=== PATIENT | male | born 1955 | race Caucasian/White ===

== ENCOUNTER → 2017-01-06 | Outpatient (CLI) | payer OTHER, BC ==
[~2017-01-06] MED LIST: PRLSR20; SIMV80TA2 PO
--- NOTE | 2017-01-06 11:25 | DIAGNOSTIC IMAGING REPORT ---
LEFT KNEE 3 VIEWS CLINICAL HISTORY: LEFT KNEE PAIN pain COMPARISON: None. DISCUSSION: Moderate degenerative narrowing medial joint compartment. Mild degenerative change patellofemoral joint. No significant soft tissue calcifications. No significant joint effusion. There is no evidence for soft tissue swelling. IMPRESSION: Moderate degenerative change. Electronically signed by: Juan Carlos Osullivan M.D. 01/06/2017 11:23 AM Dictated Date/Time: 01/06/2017 11:23 AM
== END | disposition home or self-care (01) ==
LOC: C.RAD1850 11:04
PROVIDERS: ATTEND Nurse Practitioner Adult Health
DX: M25.562 Pain in left knee (principal)

== ENCOUNTER → 2017-04-14 | Outpatient (CLI) | payer BC ==
--- NOTE | 2017-04-14 09:28 | DIAGNOSTIC IMAGING REPORT ---
CHEST 2 VIEWS ROUTINE CLINICAL HISTORY: Z77.090 Asbestos [id number] COMPARISON STUDY: 04/07/2016 FINDINGS: The cardiac and mediastinal contours are normal. There is no evidence of focal pulmonary consolidation. There is no evidence of failure. No pleural effusions are visualized.[ No pleural plaques are visualized. There is an old left clavicular fracture. IMPRESSION: No active disease in the chest. Electronically signed by: Jorge L Pruitt M.D. 04/14/2017 9:26 AM Dictated Date/Time: 04/14/2017 9:26 AM
[2017-04-14 10:05] LABS: BASO % 0.7 %; BASO ABS # 0.03 K/uL (0-0.2); COMPLETE YES; EOS % 3.4 %; IG% 0.2 %; LYMPH % 25.5 %; LYMPH ABS # 1.12 K/uL (1.2-3.4); MEAN CELL VOLUME 87.8 fL (80-100); MEAN CORPUSCULAR HEMOGLOBIN 30.4 pg (25-34); MEAN CORPUSCULAR HGB CONC 34.6 g/dl (32-36); MEAN PLATELET VOLUME 9.6 fL (7.4-10.4); MONO % 8.4 %; NEUT % 61.8 %; PLATELET COUNT 226 K/uL (130-400); RED BLOOD COUNT 4.67 M/uL (4.7-6.1); WHITE BLOOD COUNT 4.39 K/uL (4.8-10.8)
[2017-04-14 11:29] LABS: ALT/SGPT 40 U/L (12-78); AST/SGOT 26 U/L (15-37); BLOOD UREA NITROGEN 23 mg/dl (7-18); BUN/CREATININE RATIO 24.1 (10-20); CALCIUM 8.6 mg/dl (8.5-10.1); CARBON DIOXIDE 29 mmol/L (21-32); CHLORIDE 105 mmol/L (98-107); CHOLESTEROL 120 mg/dl (0-200); CREATININE 0.96 mg/dl (0.60-1.40); GLUCOSE 86 mg/dl (70-99); POTASSIUM 4.1 mmol/L (3.5-5.1); SODIUM 139 mmol/L (136-145)
[2017-04-14 11:39] LABS: ALB/GLOB RATIO 1.1 (0.9-2); ALKALINE PHOSPHATASE 88 U/L (45-117); CHOLESTEROL/HDL RATIO 2.9; HDL CHOLESTEROL 42 mg/dl; LDL CHOLESTEROL CALCULATED 66 mg/dl; TRIGLYCERIDES 61 mg/dl (0-150); VERY LOW DENSITY LIPOPROT CALC 12 mg/dl
[2017-04-14 13:42] LABS: URINE APPEARANCE CLEAR (CLEAR); URINE BILIRUBIN NEG (NEG); URINE COLOR YELLOW; URINE EPITHELIAL CELL AUTO 0-5 /lpf (0-5); URINE NITRITE NEG (NEG); URINE SPECIFIC GRAVITY 1.014 (1.000-1.030); UROBILINOGEN NEG (NEG); ZZUR CULT IF INDIC CLEAN CATCH NO
[2017-04-14 13:48] LABS: MANUAL MICROSCOPIC REQUIRED? NO; REVIEW REQ? NO
== END | disposition home or self-care (01) ==
LOC: C.RAD1850 08:53
PROVIDERS: ATTEND Internal Medicine
DX: Z77.090 Contact with and (suspected) exposure to asbestos (principal); I70.0 Atherosclerosis of aorta; E04.2 Nontoxic multinodular goiter; E78.5 Hyperlipidemia, unspecified; N40.0 Benign prostatic hyperplasia without lower urinary tract symptoms

== ENCOUNTER 2017-10-04 05:29 | Emergency (ER) | payer BC, OTHER ==
[~2017-10-04] VITALS: Ht 175.3 cm; Wt 76.0 kg
[2017-10-04 05:32] VITALS: TEMP 36.3; Ht 175.3 cm; Wt 76.0 kg
[2017-10-04] MEDS ORDERED: KETOROLAC TROMETHAMINE 30 MG/ML VIAL IV STA (05:49)
[2017-10-04] MEDS ORDERED: HYDROmorphone INJ 1 MG/ML SYR IV STA (05:49)
--- NOTE | 2017-10-04 06:42 | DIAGNOSTIC IMAGING REPORT ---
L-SPINE MIN 4 VIEWS ROUTINE CLINICAL HISTORY: Right sided lower back and leg pain. Evaluate for disc space narrowing. COMPARISON: None FINDINGS: There is 8 mm anterolisthesis of L5 on S1 likely due to pars defects. There is moderate disc space narrowing with osteophytosis and vacuum disc phenomenon at L5-S1. Otherwise, there is mild multilevel disc space narrowing with mild to moderate disc space narrowing at L2-L3. There is moderate multilevel facet arthrosis. Sacroiliac joints are intact. IMPRESSION: 1. No acute lumbar spine fracture. 2. Grade I anterolisthesis of L5 on S1 likely due to L5 pars defects. 3. Moderate disc space narrowing at L5-S1 and mild to moderate disc space narrowing at L2-L3. 4. Moderate multilevel facet arthrosis. Electronically signed by: Nelson Pitts M.D. 10/04/2017 6:41 AM Dictated Date/Time: 10/04/2017 6:39 AM
[2017-10-04] MEDS ORDERED: ZNTT/150 PO (06:44)
[2017-10-04] MEDS ORDERED: MULT-506 PO (06:44)
[2017-10-04] MEDS ORDERED: PROB1CAP41 PO (06:45)
[2017-10-04] MEDS ORDERED: ASPI81TA28 PO (06:45)
--- NOTE | 2017-10-04 06:45 | EMERGENCY ROOM VISIT NOTE ---
History Report prepared by Christine: Ro Hood Under the Supervision of: Dr. Salome Sena D.O. First contact with patient: 05:37 Chief Complaint: BACK PAIN Stated Complaint: PAIN IN LOWER BACK,HIP,TO KNEE History of Present Illness The patient is a 62 year old male who presents to the Emergency Room with complaints of constant bilateral back pain beginning one week ago. He states the pain radiates to his buttocks, knees, and pelvis. His states he is detoxing because they have been doing "holistic stuff" and this has caused him to urinate a lot tonight. The patient notes he had a headache 2 days ago. 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 Review of Systems He denies any fever, chills, upper respiratory symptoms, or cough. He denies any dizziness or lightheadedness. He denies any chest pain, shortness of breath , nausea, vomiting, or diaphoresis. He denies any abdominal pain, constipation , or diarrhea. All other systems were reviewed and were negative. 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 & Oth Luts (5) Paralytic Ileus Surgical Problems: (1) Bilat Inguinal Hernia (2) Unilat Inguinal Hernia Family History Cancer Diabetes mellitus Heart disease High blood pressure Social History Smoking Status: Never Smoker Alcohol Use: occasionally Marital Status: Housing Status: lives with significant other () Occupation Status: employed Current/Historical Medications Scheduled Aspirin (Aspirin Ec), 81 MG PO Q2D Fish Oil (Kathleen-3), 1 CAP PO DAILY Mqcaubalxla-Mjxcmqklqhq-Egi C- (Glucosamine Chondroitin), 1 TAB PO DAILY Methylprednisolone (Medrol Dosepak), 1 PKT PO UD Multivitamin (Multivitamin), 1 TAB PO DAILY Probiotic Product (Probiotic Daily), 1 CAP PO QPM Ranitidine (Zantac), 150 MG PO BID Simvastatin (Zocor), 80 MG PO QPM [beta tcp], 1 DOSE PO AMPM [botanifuge], 2 CAP PO AMPM [bromblian/cla], 1 DOSE PO AMPM Scheduled PRN Ondansetron Hcl (Zofran), 4 MG PO Q6H PRN for Nausea Oxycodone/Acetaminophen 5MG/325MG (Percocet 5MG/325MG), 1-2 TABLETS PO Q4H PRN for Pain Allergies Coded Allergies: Latex (Verified Allergy, Intermediate, RASH, 10/04/17) Suprofen (Verified Allergy, Mild, 10/04/17) Codeine (Verified Adverse Reaction, Intermediate, BAD NAUSEA AND VOMITING , 10/04/17) Propofol (Verified Adverse Reaction, Unknown, NAUSEA/VOMITING, 10/04/17) Physical Exam Vital Signs Date Time Temp Pulse Resp B/P (MAP) Pulse Ox O2 Delivery O2 Flow Rate FiO2 10/04/17 06:37 52 18 129/83 92 Room Air 10/04/17 06:04 68 18 154/90 93 Room Air 10/04/17 05:32 36.3 60 18 153/96 96 Room Air Physical Exam HEENT: Head - normocephalic and atraumatic Pupils are equal, round, and reactive to light. Extraocular eye muscles are intact, and sclera are anicteric. Nose - moist nasal mucosa without discharge. Mouth - moist buccal mucosa. Oropharynx is nonerythematous and there is no tonsillar exudate or edema noted. Neck: Supple; no JVD, nuchal rigidity, cervical lymphadenopathy. Heart: Regular rate and rhythm. There is a normal S1 and S2 with no murmurs, clicks, or gallops appreciated. Lungs: Clear to auscultation bilaterally with no wheezes, rales, or rhonchi. Abdomen: Soft, completely nontender, nondistended, with good bowel sounds. There are no palpable pulsatile masses or hepatosplenomegaly. There is no guarding, rigidity, or rebound noted. Extremities: No evidence of cyanosis, clubbing, or edema. There are easily palpable peripheral pulses. Skin: warm and dry with good turgor and no rashes. Back - Reproducible pain over the right sciatic nerve. Neuro Equal lower extremity strength; normal patellar reflexes. Medical Decision & Procedures ER Provider Diagnostic Interpretation: Radiology results as stated below per my review and the radiologist's interpretation: L-SPINE MIN 4 VIEWS ROUTINE Mild degenerative changes with no obvious discs face narrowing. CLINICAL HISTORY: Right sided lower back and leg pain. Evaluate for disc space narrowing. COMPARISON: None FINDINGS: There is 8 mm anterolisthesis of L5 on S1 likely due to pars defects. There is moderate disc space narrowing with osteophytosis and vacuum disc phenomenon at L5-S1. Otherwise, there is mild multilevel disc space narrowing with mild to moderate disc space narrowing at L2-L3. There is moderate multilevel facet arthrosis. Sacroiliac joints are intact. IMPRESSION: 1. No acute lumbar spine fracture. 2. Grade I anterolisthesis of L5 on S1 likely due to L5 pars defects. 3. Moderate disc space narrowing at L5-S1 and mild to moderate disc space narrowing at L2-L3. 4. Moderate multilevel facet arthrosis. Electronically signed by: Nelson Pitts M.D. 10/04/2017 6:41 AM Dictated Date/Time: 10/04/2017 6:39 AM Medications Administered Medications (Trade) Dose Ordered Sig/Jeison Route Start Time Stop Time Status Last Admin Dose Admin Ketorolac Tromethamine (Toradol Inj) 30 mg NOW STAT IV 10/04/17 05:49 10/04/17 05:51 DC 10/04/17 06:00 30 MG Hydromorphone HCl (Dilaudid Inj) 1 mg NOW STAT IV 10/04/17 05:49 10/04/17 05:51 DC 10/04/17 06:00 1 MG Ondansetron HCl (Zofran Inj) 4 mg NOW STAT IV 10/04/17 06:49 10/04/17 06:50 DC 10/04/17 06:49 4 MG Procedure Dilaudid IV, Toradol IV, Zofran IV ED Course 0540: Past medical records reviewed. The patient was evaluated in room A9. A complete history and physical exam was performed. IV lock was established. 0549: Dilaudid Inj 1 mg IV, Toradol Inj 30 mg IV. The patient went for plain films of the lumbar spine. 0638: I reevaluated the patient at this time. He is nauseated because of the pain medications I gave him. I will administer Zofran. 0649: Zofran Inj 4 mg IV 0715: I reevaluated the patient at this time. He is nauseated and cannot urinate. He is very concerned about making his dentist appointment on Thursday morning. I talked to him about opioid medication and the problems of addictions. I will look him up in the PDMP. 0736: Everything is negative in PDMP. The patient was able to urinate finally and it was negative. Medical Decision The patient is a 62 year old male who presents to the ED with back pain. Differential diagnosis includes sciatica, lumbar radiculopathy, herniated lumbar disc, kidney stone, pyelonephritis. Urine dip: Negative. Patient presents to the emergency department with severe right buttocks, right pelvis, and right thigh pain. This has been increasing over the past couple of days. He is significant discomfort with movement. I was able to reproduce a burning pain with deep palpation of the right piriformis muscle and sciatic nerve. The patient is suffering from acute sciatica. Because of the discomfort over the right hemipelvis and into the right thigh, I did plain films of the lumbar spine which did show some disc space narrowing at L2-L3 and L5-S1. Patient will need an MRI of the lumbar spine to further evaluate for acute disc herniation. Patient had no neurological deficits. He had moderate relief of his discomfort with the above medications. He will use a Medrol Dosepak and Percocet at home for pain. I've encouraged him to follow up with his PCP or Dr. Bowles to facilitate an MRI of the lumbar spine. If symptoms worsen or he develops any lower extremity weakness or loss of control of his bowels or bladder, he was instructed to return to the ER. [place] Drug Monitoring Program Search Results: patient reviewed within database, no issues identified Medication Reconcilliation Current Medication List: was personally reviewed by me Blood Pressure Screening Patient's blood pressure: Normal blood pressure Impression Primary Impression: Lumbar radiculopathy Additional Impression: Sciatica Scribe Attestation The scribe's documentation has been prepared under my direction and personally reviewed by me in its entirety. I confirm that the note above accurately reflects all work, treatment, procedures, and medical decision making performed by me. Departure Information Dispostion Home / Self-Care Prescriptions Methylprednisolone (MEDROL DOSEPAK) 4 Mg Fred 1 PKT PO UD for 6 Days, #1 PKT Prov: Salome Sena D.O. 10/04/17 Ondansetron Hcl (ZOFRAN) 4 Mg Tab 4 MG PO Q6H Y for Nausea, #14 TAB Prov: Salome Sena D.O. 10/04/17 Oxycodone/Acetaminophen 5MG/325MG (PERCOCET 5MG/325MG) Tab 1-2 TABLETS PO Q4H Y for Pain, #20 TAB Prov: Salome Sena D.O. 10/04/17 Referrals Lul Martinez M.D. (PCP) Forms HOME CARE DOCUMENTATION FORM, IMPORTANT VISIT INFORMATION Patient Instructions My [facility] Additional Instructions Rest. Limit strenuous activity and bennding Medrol dose pack as directed. Percocet 1-2 tabs. every 4 hours for severe pain. Do not drink alcohol or drive while taking this med zofran - 1 tab. under the tongue for nausea if needed. Follow up with PCP or Dr. Bowles if pain persists Problem Qualifiers Additional Impression: Sciatica Laterality: right Qualified Codes: M54.31 - Sciatica, right side
[2017-10-04] MEDS ORDERED: OMEG10007 PO (06:48)
[2017-10-04] MEDS ORDERED: GLUCTAB7 PO (06:48)
[2017-10-04] MEDS ORDERED: ONDANSETRON INJ 2 MG/ML 2 ML VIAL IV STA (06:49)
[2017-10-04] MEDS ORDERED: [UNRECOGNIZED DRUG - OTHER] PO (06:50)
[2017-10-04] MEDS ORDERED: BETA TCP PO (06:50)
[2017-10-04] MEDS ORDERED: [UNRECOGNIZED DRUG - OTHER] PO (06:50)
[2017-10-04] MEDS ORDERED: METH4PAK PO (07:42)
[2017-10-04] MEDS ORDERED: ONDA4TAB46 PO (07:42)
[2017-10-04] MEDS ORDERED: OXYC-57 PO (07:42)
[2017-10-04 08:34] VITALS: BP 115/74; PULSE 72; O2SAT 97
== END 2017-10-04 08:35 | disposition home or self-care (01) ==
LOC: C.EDB 05:30 → C.EDA 08:35
DX: M54.16 Radiculopathy, lumbar region (principal); M54.41 Lumbago with sciatica, right side; K21.9 Gastro-esophageal reflux disease without esophagitis; E78.5 Hyperlipidemia, unspecified; Z79.82 Long term (current) use of aspirin

== ENCOUNTER → 2017-10-08 | Outpatient (CLI) | payer OTHER ==
[~2017-10-08] MED LIST changes: +ASPI81TA28 PO; +BETA TCP PO; +GLUCTAB7 PO; +METH4PAK PO; +MULT-506 PO; +OMEG10007 PO; +ONDA4TAB46 PO; +OXYC-57 PO; -PRLSR20; +PROB1CAP41 PO; +ZNTT/150 PO; +[UNRECOGNIZED DRUG - OTHER] PO; +[UNRECOGNIZED DRUG - OTHER] PO
[2017-10-08 17:58] LABS: BLOOD UREA NITROGEN 19 mg/dl (7-18); CREATININE 1.02 mg/dl (0.60-1.40)
== END | disposition home or self-care (01) ==
LOC: C.LABBFT 14:29
PROVIDERS: ATTEND Physician Assistant Medical
DX: M54.16 Radiculopathy, lumbar region (principal)

== ENCOUNTER → 2017-10-13 | Outpatient (CLI) | payer OTHER ==
[~2017-10-13] MED LIST changes: -METH4PAK PO; +RANI150T85 PO; -ZNTT/150 PO
[2017-10-13 19:04] LABS: BLOOD UREA NITROGEN 18 mg/dl (7-18); CALCIUM 8.6 mg/dl (8.5-10.1); CARBON DIOXIDE 30 mmol/L (21-32); CREATININE 1.54 mg/dl (0.60-1.40); GLUCOSE 94 mg/dl (70-99); SODIUM 137 mmol/L (136-145)
== END | disposition home or self-care (01) ==
LOC: C.LAB 18:10
PROVIDERS: ATTEND Internal Medicine
DX: R39.9 Unspecified symptoms and signs involving the genitourinary system (principal)

== ENCOUNTER → 2017-10-20 | Outpatient (CLI) | payer OTHER ==
[~2017-10-20] MED LIST changes: +ACET-1256 PO; +IBUP-1450 PO; +Prednisone
[2017-10-20 17:56] LABS: BLOOD UREA NITROGEN 21 mg/dl (7-18); CALCIUM 9.2 mg/dl (8.5-10.1); CARBON DIOXIDE 28 mmol/L (21-32); CREATININE 0.99 mg/dl (0.60-1.40); GLUCOSE 112 mg/dl (70-99); POTASSIUM 4.3 mmol/L (3.5-5.1); SODIUM 138 mmol/L (136-145)
== END | disposition home or self-care (01) ==
LOC: C.LABBFT 14:51
PROVIDERS: ATTEND Internal Medicine
DX: R79.9 Abnormal finding of blood chemistry, unspecified (principal)

== ENCOUNTER → 2017-12-04 | Outpatient (CLI) | payer OTHER ==
[~2017-12-04] MED LIST changes: -GLUCTAB7 PO
--- NOTE | 2017-12-04 14:17 | DIAGNOSTIC IMAGING REPORT ---
ABDOMEN FOR HERNIA CLINICAL HISTORY: 62 years-old Male presenting with R10.30 Groin discomfort. TECHNIQUE: Real-time grayscale Doppler ultrasound imaging of the right inguinal region was performed for a focused evaluation at the site of clinical concern. COMPARISON: CT from 05/31/2012. FINDINGS: At the site of clinical concern in the region of the right inguinal canal, suspected peritoneal defect measuring 9 mm with herniated isoechoic contents characteristic of fat. The hernia sac measures 2.8 x 1.0 cm. No associated fluid. This is reducible with sonographic probe compression. IMPRESSION: 1. Reducible fat-containing right inguinal hernia. Electronically signed by: Flash Rodríguez M.D. 12/04/2017 2:15 PM Dictated Date/Time: 12/04/2017 2:13 PM
== END | disposition home or self-care (01) ==
LOC: C.ULTR 13:53
PROVIDERS: ATTEND Internal Medicine
DX: R10.30 Lower abdominal pain, unspecified (principal); K40.90 Unilateral inguinal hernia, without obstruction or gangrene, not specified as recurrent

== ENCOUNTER → 2017-12-30 | Day surgery (SDC) | payer OTHER ==
[2017-12-25 15:54] VITALS: BMI 26.0
[~2017-12-30] VITALS: Ht 175.3 cm; Wt 81.4 kg
[~2017-12-30] MED LIST changes: +ATROPINE SULFATE 0.1 MG/ML 5ML SYR IV PRN; +BUPIVACAINE 0.5 % 5 MG/1 ML MPF 30ML VIAL INJ ONE; +BUPIVACAINE 0.5 % 5 MG/1 ML MPF 30ML VIAL ONE; +CEFAZOLIN 2000MG IV PUSH 15 ML IV SCH; +CEFAZOLIN SOD 1 GM VIAL ONE; +CEPH500C2 PO; +DEXAMETHASONE SOD INJ 4 MG/ML VIAL ONE; +EpHEDrine SULFATE 50MG/5ML SYR ONE; +EpHEDrine SULFATE INJ 50 MG/ML AMP IV PRN; +FENTANYL CITRATE INJ 50 MCG/1 ML 2 ML VIAL ONE; +GLYCOPYRROLATE INJ 0.2 MG/ML VIAL ONE; +HYDR-5688 PO; +HYDROCODONE/ACETAMIN 5/325MG TAB PO PRN; +HYDROmorphone INJ 2 MG/ML SYR/VIAL IV PRN; -IBUP-1450 PO; +IBUP-1459 PO; +LACTATED RINGER'S 1000ML IV SCH; +LIDOCAINE HCL 1% 20 ML VIAL ONE; +LIDOCAINE HCL 2% 2 ML VIAL (20MG/ML) ONE; +LIGAPLEX PO; +MIDAZOLAM HCL 1 MG/ML 2ML VIAL ONE; +NEOSTIGMINE METHYLSULFATE 5 MG/5 ML SYR ONE; -ONDA4TAB46 PO; +ONDANSETRON INJ 2 MG/ML 2 ML VIAL IV PRN; +ONDANSETRON INJ 2 MG/ML 2 ML VIAL ONE; -OXYC-57 PO; +PHENYLEPHRINE 100MCG/ML 5ML SYR IV PRN; +PROPOFOL IV EMULSION 10 MG/ML 20 ML VIAL IV ONE; -Prednisone; +ROCURONIUM BROMIDE 10 MG/ML 5 ML VIAL IV ONE; +SCOPOLAMINE 1.5 MG TDSY TD ONE; -[UNRECOGNIZED DRUG - OTHER] PO
[2017-12-30 08:20] VITALS: BP 142/92; PULSE 66; TEMP 36.5; O2SAT 97; Ht 175.3 cm; Wt 81.4 kg
--- NOTE | 2017-12-30 10:25 | History & Physical Bridge Note ---
H&P Re-Evaluation Bridge Note: I have examined the patient, reviewed the History & Physical and in the interval since the performance of the History & Physical I have noted the following changes of clinical significance: No changes noted
--- NOTE | 2017-12-30 10:42 | Discharge Instructions ---
Discharge Instructions Date of Service Dec 30, 2017. Visit Reason for Visit: Recurrent Right Inguinal Hernia Discharge Discharge Diagnosis / Problem: Rt inguinal hernia Discharge Goals Goal(s): Decrease discomfort, Improve function, Improve disease control Activity Recommendations Activity Limitations: as noted below Lifting Limitations: no more than 25 pounds (for 4 weeks) Exercise/Sports Limitations: until after follow-up appointment May Resume Sexual Activity: when tolerated Shower/Bathe: tomorrow Driving or Machine Use: resume 3 days after discharge Anesthesia . Post Anesthesia Instructions: If you have had General Anesthesia or IV Sedation: * Do not drive today. * Resume driving when surgeon permits. * Do not make important decisions or sign legal documents today. * Call surgeon for: 1. Temperature elevations greater than 101 degrees F. 2. Uncontrollable pain. 3. Excessive bleeding. 4. Persistent nausea and vomiting. 5. Medication intolerance (nausea, vomiting or rash). * For nausea and vomiting use only clear liquids such as: tea, soda, bouillon until nausea subsides, then gradually increase diet as tolerated. * If you have any concerns or questions, call your surgeon's office. If physician is unavailable and it is an emergency, call 911 or go to the nearest emergency room. . Instructions / Follow-Up Instructions / Follow-Up SPECIAL CARE INSTRUCTIONS: * Cover incisions and change daily for comfort/drainage. may leave uncovered with dermabond * Avoid constipation- may use Senokot S and Milk of magnesia twice daily as directed on the package * May use ibuprofen for pain as tolerated. * Expect some swelling and bruising. Call your doctor if: * Temperature above 101 degrees * Pain not relieved by pain medicine ordered * There is increased drainage or redness from any incision * You have any unanswered questions or concerns [phone]. FOLLOW UP VISIT: If not already scheduled, please call the office for a follow-up visit. for 2 weeks- no sutures to remove OFFICE PHONE NUMBER: Dr. Go Office Diet Recommendations Recommended Home Diet: resume previous diet Pending Studies Studies pending at discharge: no Medical Emergencies . Who to Call and When: Medical Emergencies: If at any time you feel your situation is an emergency, please call 911 immediately. . Non-Emergent Contact Non-Emergency issues call your: Primary Care Provider, Surgeon . . "Provider Documentation" section prepared by Russell Go. .
--- NOTE | 2017-12-30 11:27 | [facility] Operative Report ---
Operative Report Operative Date Dec 30, 2017. Pre-Operative Diagnosis Right Recurrent Inguinal Hernia Post-Operative Diagnosis Right Recurrent Inguinal Hernia, direct defect, indirect lipoma Procedure(s) Performed Right Laparoscopic Inguinal Hernia Repair Surgeon Dr Go Line Lead Surgeon(s) Ethan Correa PA-C Estimated Blood Loss 10cc Findings small direct defect and small indirect lipoma Anesthesia Type General Complication(s) none Disposition Recovery Room / PACU I attest to the content of the Intraoperative Record and any orders documented therein. Any exceptions are noted below.
--- NOTE | 2017-12-30 12:13 | Anesthesiology Progress Note ---
Anesthesia Post Op Note Date & Time Dec 30, 2017 at 12:13 Vital Signs Pain Intensity: 2 Vital Signs Past 12 Hours Date Time Temp Pulse Resp B/P (MAP) Pulse Ox O2 Delivery O2 Flow Rate FiO2 12/30/17 12:10 54 16 108/69 93 Room Air 12/30/17 12:00 47 12 105/70 97 Oxymask 10 12/30/17 11:50 50 11 107/71 99 Oxymask 10 12/30/17 11:40 36.7 50 16 100/65 98 Oxymask 10 12/30/17 08:20 36.5 66 20 142/92 (109) 97 Room Air Notes Mental Status: alert / awake / arousable, participated in evaluation Pt Amnestic to Procedure: Yes Nausea / Vomiting: adequately controlled Pain: adequately controlled Airway Patency, RR, SpO2: stable & adequate BP & HR: stable & adequate Hydration State: stable & adequate Anesthetic Complications: no major complications apparent
[2017-12-30 12:25] VITALS: BP 103/62; PULSE 54; TEMP 36.5; O2SAT 99
[2017-12-30 12:55] VITALS: BP 116/77; PULSE 68; O2SAT 98
--- NOTE | 2017-12-30 13:31 | OPERATIVE REPORT ---
DATE OF OPERATION: 12/30/2017 NAME OF THE OPERATION: Laparoscopic recurrent right inguinal hernia repair. PREOPERATIVE DIAGNOSIS: Recurrent right inguinal hernia. POSTOPERATIVE DIAGNOSIS: Recurrent right inguinal hernia with direct defect and small lipoma in the indirect site. STAFF SURGEON: Russell Go MD AIR OPERATIONS MANAGER: Ross Correa PA-C ANESTHESIA: General. PROCEDURE: The patient was brought in the operating room and placed on the operating table in supine position. His abdomen was prepped and draped in the usual fashion. Falk catheter, pneumatic stockings, and orogastric tube were placed. The skin and subcutaneous tissue above the umbilicus were anesthetized. An incision was made carrying dissection down to the fascia, placing a Veress needle producing pneumoperitoneum. Under visualization, two 5 mm ports were placed, one right and left lateral. On inspection, the patient had what appeared to be a direct inguinal hernia. The indirect site was still intact from prior repair. At this point, dissection was carried out from [id number] above the defect, taking the peritoneum down, identifying a small direct hernia sac which was dissected free. The patient had a small lipoma which was in the indirect site. These were all taken down and a large piece of 3D max mesh was placed into the right lower quadrant covering the defects, secured above the inguinal ligament using absorbable tacks. The peritoneum was then brought up over the mesh, secured using absorbable tacks. The pneumoperitoneum was reduced. All ports were removed. Fascia at the umbilicus closed using 0 Vicryl suture. Skin reapproximated using subcuticular 4-0 Monocryl and Dermabond. The patient was transferred to recovery room in stable condition. My assistant sales manager helped with prepping, draping, exposure of the hernia, repair of the hernia, and closure of the wounds. I attest to the content of the Intraoperative Record and any orders documented therein. Any exception s are noted below.
== END | disposition home or self-care (01) ==
LOC: C.ACU 08:08
PROVIDERS: ATTEND Surgery
DX: K40.91 Unilateral inguinal hernia, without obstruction or gangrene, recurrent (principal); E78.5 Hyperlipidemia, unspecified; N40.0 Benign prostatic hyperplasia without lower urinary tract symptoms; K21.9 Gastro-esophageal reflux disease without esophagitis; M51.9 Unspecified thoracic, thoracolumbar and lumbosacral intervertebral disc disorder; M54.16 Radiculopathy, lumbar region; E78.00 Pure hypercholesterolemia, unspecified; Z91.040 Latex allergy status; Z88.2 Allergy status to sulfonamides; Z82.49 Family history of ischemic heart disease and other diseases of the circulatory system; Z84.1 Family history of disorders of kidney and ureter; Z83.3 Family history of diabetes mellitus; Z79.82 Long term (current) use of aspirin

== ENCOUNTER → 2018-04-14 | Outpatient (CLI) | payer OTHER ==
[~2018-04-14] MED LIST changes: -ATROPINE SULFATE 0.1 MG/ML 5ML SYR IV PRN; -BUPIVACAINE 0.5 % 5 MG/1 ML MPF 30ML VIAL INJ ONE; -BUPIVACAINE 0.5 % 5 MG/1 ML MPF 30ML VIAL ONE; -CEFAZOLIN 2000MG IV PUSH 15 ML IV SCH; -CEFAZOLIN SOD 1 GM VIAL ONE; -DEXAMETHASONE SOD INJ 4 MG/ML VIAL ONE; -EpHEDrine SULFATE 50MG/5ML SYR ONE; -EpHEDrine SULFATE INJ 50 MG/ML AMP IV PRN; -FENTANYL CITRATE INJ 50 MCG/1 ML 2 ML VIAL ONE; -GLYCOPYRROLATE INJ 0.2 MG/ML VIAL ONE; -HYDROCODONE/ACETAMIN 5/325MG TAB PO PRN; -HYDROmorphone INJ 2 MG/ML SYR/VIAL IV PRN; -LACTATED RINGER'S 1000ML IV SCH; -LIDOCAINE HCL 1% 20 ML VIAL ONE; -LIDOCAINE HCL 2% 2 ML VIAL (20MG/ML) ONE; -MIDAZOLAM HCL 1 MG/ML 2ML VIAL ONE; -NEOSTIGMINE METHYLSULFATE 5 MG/5 ML SYR ONE; -ONDANSETRON INJ 2 MG/ML 2 ML VIAL IV PRN; -ONDANSETRON INJ 2 MG/ML 2 ML VIAL ONE; -PHENYLEPHRINE 100MCG/ML 5ML SYR IV PRN; -PROPOFOL IV EMULSION 10 MG/ML 20 ML VIAL IV ONE; -ROCURONIUM BROMIDE 10 MG/ML 5 ML VIAL IV ONE; -SCOPOLAMINE 1.5 MG TDSY TD ONE
--- NOTE | 2018-04-14 08:46 | DIAGNOSTIC IMAGING REPORT ---
TWO VIEW CHEST CLINICAL HISTORY: Cough. Asbestos exposure. FINDINGS: PA and lateral chest radiographs are compared to study dated 04/14/2017 and correlated with chest CT dated 03/17/2012. The cardiomediastinal silhouette is unremarkable noting mild atherosclerotic calcification of the thoracic aorta. The lungs and pleural spaces are clear. There is no pneumothorax. The bony thorax appears intact. IMPRESSION: The lungs are clear. Electronically signed by: Simon Hawthorne M.D. 04/14/2018 8:45 AM Dictated Date/Time: 04/14/2018 8:44 AM
[2018-04-14 09:34] LABS: BASO % 0.5 %; BASO ABS # 0.02 K/uL (0-0.2); EOS % 5.2 %; EOS ABS # 0.19 K/uL (0-0.5); HEMATOCRIT 41.9 % (42-52); HEMOGLOBIN 14.3 g/dL (14.0-18.0); IG# 0.01 K/uL (0.00-0.02); LYMPH % 23.6 %; LYMPH ABS # 0.86 K/uL (1.2-3.4); MEAN CELL VOLUME 87.8 fL (80-100); MEAN CORPUSCULAR HGB CONC 34.1 g/dl (32-36); MEAN PLATELET VOLUME 9.8 fL (7.4-10.4); MONO ABS # 0.33 K/uL (0.11-0.59); NEUT % 61.4 %; NEUT ABS # 2.24 K/uL (1.4-6.5); PLATELET COUNT 203 K/uL (130-400); RED CELL DISTRIBUTION WIDTH CV 12.9 % (11.5-14.5); RED CELL DISTRIBUTION WIDTH SD 41.5 fL (36.4-46.3); WHITE BLOOD COUNT 3.65 K/uL (4.8-10.8)
[2018-04-14 09:56] LABS: ALBUMIN 4.1 gm/dl (3.4-5.0); ALKALINE PHOSPHATASE 75 U/L (45-117); ALT/SGPT 29 U/L (12-78); AST/SGOT 23 U/L (15-37); BLOOD UREA NITROGEN 22 mg/dl (7-18); CALCIUM 8.6 mg/dl (8.5-10.1); CARBON DIOXIDE 25 mmol/L (21-32); CHOLESTEROL 121 mg/dl (0-200); CREATININE 0.86 mg/dl (0.60-1.40); GLUCOSE 89 mg/dl (70-99); LDL CHOLESTEROL CALCULATED 63 mg/dl; POTASSIUM 3.6 mmol/L (3.5-5.1); SODIUM 139 mmol/L (136-145); TOTAL PROTEIN 7.4 gm/dl (6.4-8.2)
== END | disposition home or self-care (01) ==
LOC: C.RAD1850 08:07
PROVIDERS: ATTEND Internal Medicine
DX: Z77.090 Contact with and (suspected) exposure to asbestos (principal); D72.819 Decreased white blood cell count, unspecified; N40.0 Benign prostatic hyperplasia without lower urinary tract symptoms; E78.5 Hyperlipidemia, unspecified

== ENCOUNTER → 2018-04-30 | Outpatient (CLI) | payer OTHER | END | disposition home or self-care (01) | LOC: C.LAB1850 07:07 | PROVIDERS: ATTEND Internal Medicine | DX: N52.9 Male erectile dysfunction, unspecified (principal); R31.29 Other microscopic hematuria ==

== ENCOUNTER 2023-12-31 09:01 | Observation (INO) ==
--- NOTE | 2023-12-10 13:24 | PAT Medication Instructions ---
Medication Instructions Date of Service December 10, 2023 Home Medications Medication Instructions Recorded simvastatin 80 mg tablet 80 mg PO HS #90 tabs 10/08/23 tadalafil 5 mg tablet 5 mg PO QAM #30 tabs 10/13/23 manganese 1 tab PO 3XWK Basic Nine 1 tab PO 3XWK Bio - Dk 1 cap PO UD PRN Essential Biotic 1 tab PO WK Magnesium Complex 1 cap PO HS Premier B.P. Complex 1 tab PO QAM aspirin 81 mg tablet,delayed release 81 mg PO 3XWK zinc 25 mg tablet 25 mg PO UD PRN Andorran Black Radish 1 tab PO BID Bio C Plus 1000 1 cap PO UD PRN Kyolic 1 cap PO UD PRN BETA TCP 1 tab PO 2XWK Epa/Gaines Marine Fish Oil 1 cap PO QPM simvastatin 80 mg tablet 80 mg PO HS tadalafil 5 mg tablet 5 mg PO QAM ASK your prescriber and surgeon aspirin 81 mg tablet,delayed release 81 mg PO 3XWK STOP taking 2 weeks before surgery (or as soon as possible if surgery is within 2 weeks) Andorran Black Radish 1 tab PO BID Bio C Plus 1000 1 cap PO UD PRN Kyolic 1 cap PO UD PRN BETA TCP 1 tab PO 2XWK Epa/[employer] Fish Oil 1 cap PO QPM Premier B.P. Complex 1 tab PO QAM manganese 1 tab PO 3XWK Basic Nine 1 tab PO 3XWK Bio - Dk 1 cap PO UD PRN Essential Biotic 1 tab PO WK DO NOT take the morning of surgery tadalafil 5 mg tablet 5 mg PO QAM zinc 25 mg tablet 25 mg PO UD PRN Take evening before surgery simvastatin 80 mg tablet 80 mg PO HS Magnesium Complex 1 cap PO HS Other Notes NOTHING TO EAT OR DRINK AFTER MIDNIGHT. If you have any questions please call us at [phone] or [phone] or [phone] or [phone]
--- NOTE | 2023-12-17 11:18 | Anesthesiology Consultation ---
Date of Service December 17, 2023 Assessment & Plan (1) Encounter for pre-operative examination: - patient plans to have testing done at [facility]. - Case discussed in detail with Dr. Zhao who advised patient is acceptable to proceed for surgery, pending completion of surgeon ordered labs. Chart Review Chart Review: Pending: Refer to Additional Notes / Consult section and Patient seen in Pre Admission Testing Teaching & Discussion Pre-Anesthesia Teaching/Discussion Notes: Instructed NPO after midnight before surgery, except medications with 15 cc of water. Medication instructions provided according to the PAT guidelines. History Surgery Operation Date: 12/31/23 10:40 Proposed Procedures p Left Total Knee Arthroplasty - Deandre Heck MD Height/Weight Height: 5 ft 9 in Weight: 78.2 kg Allergies Allergy/AdvReac Type Severity Reaction Status Date / Time Diclopak Allergy Mild LEFT NECK Verified 12/30/17 09:16 PAIN;HOT FLASHES capsaicin Allergy Unknown LEFT NECK Verified 09/28/23 09:22 PAIN;HOT FLASHES diclofenac Allergy Unknown LEFT NECK Verified 09/28/23 09:22 PAIN;HOT FLASHES latex Allergy Unknown SKIN Verified 09/28/23 09:22 IRRITATION suprofen Allergy Unknown HOT FLUSH, Verified 09/28/23 09:22 PAIN L SIDE NECK codeine AdvReac Unknown BAD NAUSEA Verified 09/28/23 09:22 AND VOMITING Sulfa (Sulfonamide AdvReac Unknown GI UPSET Verified 09/28/23 09:22 Antibiotics) ADHESIVE Allergy Unknown RED RASH Uncoded 09/28/23 09:22 Medications Home Medications Medication Instructions Recorded Confirmed Last Taken manganese 1 tab PO 3XWK 05/01/20 12/10/23 07/22/22 Basic Nine 1 tab PO 3XWK 07/17/22 12/10/23 07/22/22 Bio - Dk 1 cap PO UD PRN helps with immune 07/17/22 12/10/23 07/22/22 system Essential Biotic 1 tab PO WK 07/17/22 12/10/23 07/22/22 Magnesium Complex 1 cap PO HS 07/17/22 12/10/23 07/22/22 Premier B.P. Complex 1 tab PO QAM 07/17/22 12/10/23 07/22/22 aspirin 81 mg tablet,delayed 81 mg PO 3XWK 07/17/22 12/10/23 07/22/22 release zinc 25 mg tablet 25 mg PO UD PRN when immune system 07/17/22 12/10/23 07/22/22 is down English Black Radish 1 tab PO BID 10/14/22 12/10/23 Unknown Bio C Plus 1000 1 cap PO UD PRN prn 12/11/22 12/10/23 Unknown Kyolic 1 cap PO UD PRN circulation 12/11/22 12/10/23 Unknown BETA TCP 1 tab PO 2XWK 03/12/23 12/10/23 Unknown Epa/Gaines Marine Fish Oil 1 cap PO QPM 03/12/23 12/10/23 Unknown simvastatin 80 mg tablet 80 mg PO HS #90 tabs 10/08/23 12/10/23 Unknown tadalafil 5 mg tablet 5 mg PO QAM #30 tabs 10/13/23 12/10/23 Unknown Past Medical History Medical History Khan's cyst of knee hx- bilat-aspirated Bigeminy HX BPH w urinary obs/LUTS GERD (gastroesophageal reflux disease) controlled, stable per pt Hiatal hernia Hyperlipidemia Lumbar disc disease Multiple pulmonary nodules hx Nontoxic multinodular goiter monitoring by PCP per pt Prediabetes PVCs (premature ventricular contractions) hx benign pvc's - asymptomatic- no longer follows w/ cardio, last visit ~2014 Sleep apnea CPAP Trigeminy HX Patient denies h/o stroke, seizures, heart attack, heart failure, HTN, blood clots/DVTs or blood transfusions. Exercise / Class Metabolic Activity II 4-5 Yardwork/Stairs/Walk up hill (denies chest discomfort or shortness of breath with 1 FOS) Past Family History Family History Mother Diabetes Coronary heart disease Heart disease Chronic kidney disease Myocardial infarction Hypertension Cancer Thyroid Stroke Father Myocardial infarction Stroke Heart disease Hypertension Sister Hepatitis Diabetes Denies family history of Ovarian cancer Prostate cancer Breast cancer Colorectal cancer Past Surgical History Surgical History History of arthroscopy of right shoulder History of carpal tunnel surgery right History of colonoscopy Hx of foot surgery right big toe Hx of inguinal hernia repair RX 2 , L X 1 Hx of oral surgery wisdom teeth extraction Past Anesthesia History No Hx of Anesthesia Complications Unknown family history. History of PONV No Hx of Motion Sickness and History of PONV (nausea without vomiting, denies needing scop patch) Social History Smoking Status: Never smoker Do You Dip or Chew Tobacco: No Hx Alcohol Use: No Hx Substance Use: No substance use type: does not use Review of Systems Patient denies chest pain, shortness of breath, dyspnea on exertion, fever, chills, cough, wheezing, or palpitations. Physical Exam Vital Signs Vitals BP 131/76 P 69 TEMP 98.4 SP02 95% on RA RESP 17 Physical Patient resting comfortably in chair in no acute distress, alert and oriented, responding appropriately throughout visit Full cervical extension range of motion without pain TMD 3.5 finger breadths Mallampati Score 3 Dentition: intact, denies chipped or loose teeth, caps/crowns, implants or bridges Lungs: normal respiratory effort. Good air movement, clear throughout to auscultation, no adventitious breath sounds Cardiac: regular rate and rhythm, no murmurs noted Carotid arteries: negative bruit bilat Lab Results Anesthesia Preop Results Results Anesthesia Widget: WBC 3.8 Thousand/uL (3.8-10.8) 12/17/23 Hgb 14.5 g/dL (13.2-17.1) 12/17/23 Hct 42.6 % (38.5-50.0) 12/17/23 Plt 235 Thousand/uL (140-400) 12/17/23 Na 139 mmol/L (135-146) 12/17/23 K 4.3 mmol/L (3.5-5.3) 12/17/23 Cl 105 mmol/L (98-110) 12/17/23 CO2 25 mmol/L (20-32) 12/17/23 BUN 20 mg/dL (7-25) 12/17/23 Creat 0.99 mg/dL (0.70-1.35) 12/17/23 Glucose Level 95 mg/dL (65-139) 12/17/23 PT 10.7 sec (9.0-11.5) 12/17/23 PTT 30 sec (23-32) 12/17/23 INR 1.0 12/17/23 HA1c 5.9 % of total Hgb (<5.7) H 12/17/23 Blood Type O Positive 12/17/23 Antibody Screen NEGATIVE 12/17/23 Testing Electrocardiogram Date: 12/17/23 Sinus bradycardia, rate 54 bpm Nonspecific T wave abnormality Chest X-Ray Date: 12/17/23 No acute chest disease.
[~2023-12-31 09:01] MED LIST changes: -ACET-1256 PO; +ALLERGY Noted to ORDERED Medication SCH; -ASPI81TA28 PO; -BETA TCP PO; +BUPIVACAINE 0.5 % 5 MG/1 ML PF 10ML VIAL ONE; -CEPH500C2 PO; -HYDR-5688 PO; -IBUP-1459 PO; -LIGAPLEX PO; -MULT-506 PO; -OMEG10007 PO; -PROB1CAP41 PO; -RANI150T85 PO; +ROPIVACAINE 0.5% 5 MG/ML 30 ML VIAL ONE; -SIMV80TA2 PO; -[UNRECOGNIZED DRUG - OTHER] PO
[2023-12-31] MEDS ORDERED: fentaNYL citrate PF 100 MCG/2 ML VIAL ONE (09:27)
[2023-12-31] MEDS ORDERED: MIDAZOLAM HCL 1 MG/ML 2ML VIAL ONE ×2 (09:27→09:28)
[2023-12-31] MEDS ORDERED: ePHEDrine sulfate 50 MG/ML AMP IV PRN (10:15)
[2023-12-31] MEDS ORDERED: fentaNYL citrate PF 100 MCG/2 ML VIAL IV PRN (10:15)
[2023-12-31] MEDS ORDERED: ATROPINE SULFATE 0.1 MG/ML 10ML SYR IV PRN (10:15)
[2023-12-31] MEDS ORDERED: ONDANSETRON INJ 2 MG/ML 2 ML VIAL IV PRN ×2 (10:15→15:54)
[2023-12-31] MEDS: METOCLOPRAMIDE HCL 10 MG TABLET PO SCH (10:18)
[2023-12-31] MEDS: dexAMETHasone**PF** 10 MG/ML VIAL IV SCH (10:18)
[2023-12-31] MEDS: ACETAMINOPHEN 500 MG TAB PO SCH ×2 (10:18→16:30)
[2023-12-31] MEDS: FAMOTIDINE 20 MG TAB PO SCH (10:18)
[2023-12-31] MEDS: LR 500ML BOLUS, THEN 15ML/HR IV SCH (10:19)
[2023-12-31] MEDS: LR 60ML/HR IV SCH (10:19)
[2023-12-31] MEDS: Scopolamine 1 MG TDSY TD SCH (10:19)
--- NOTE | 2023-12-31 10:53 | History & Physical Bridge Note ---
Date of Service December 31, 2023 History & Physical Bridge Note I have examined the patient, reviewed the History & Physical and in the interval since the performance of the History & Physical I have noted the following changes of clinical significance: no changes noted
[2023-12-31] MEDS: ceFAZolin 2000MG 2,000 MG/15 ML SYR IV SCH (11:13)
[2023-12-31] MEDS: TRANEXAMIC ACID 1,000 MG **IV Intra-op IV SCH (12:10)
[2023-12-31] MEDS: ROPIV 0.5% 246mg, Ketorolac 30mg, EPINEPHrine 0.5mg in NSS INFIL SCH (12:26)
[2023-12-31] MEDS ORDERED: LIDOCAINE 2% 2 ML VIAL/AMP(20MG/ML) INFIL ONE (13:02)
[2023-12-31] MEDS ORDERED: ONDANSETRON INJ 2 MG/ML 2 ML VIAL ONE (13:02)
[2023-12-31] MEDS ORDERED: PROPOFOL IV EMULSION 10 MG/ML 100 ML VIAL IV ONE (13:02)
[2023-12-31] MEDS ORDERED: ePHEDrine sulfate 50 MG/ML AMP ONE (13:02)
--- NOTE | 2023-12-31 13:06 | Operative Report ---
PG Post Operative Report Pre & Post Diagnosis Operation Date: 12/31/23 10:40 Pre-Op Diagnosis: Left Knee Osteoarthritis Post-Op Diagnosis: Left Knee Osteoarthritis I identified the patient and participated in the time-out.: Yes Procedure Operation Date: 12/31/23 10:40 Actual Procedures p Left Total Knee Arthroplasty(Left) - Deandre Heck MD Surgeon Deandre Heck MD Technical Applications Scientist Nicholas Dubon PA-C Estimated Blood Loss 50 Findings Consistent with Post-Op Diagnosis Operative findings reveal advanced left knee medial compartment arthritis. Complete [id number] disease and eburnation of the medial femoral condyle medial tibial plateau. He a fixed varus deformity to his knee. Slight flexion contracture. Large Khan's cyst posteriorly. Specimens Left knee sent for pathology. Anesthesia Type Spinal MAC Complications none Disposition Accompanied Patient To Recovery: No Indications Patient is 68-year-old fairly active gentleman whose had a several year history of increasing bilateral knee pain and discomfort is really started to affect his quality life and ability to maintain an active lifestyle. He is at significant Khan's cyst bilaterally please print to extensive conservative treatment which became less successful over time. He like proceed with total knee arthroplasty. Description of Procedure Operative implants consist of: 1 Biomet Vanguard size 67.5 left posterior stabilized femoral component. 2. Biomet size 79 tibial tray. 3. 12 mm post stabilized polyethylene insert. 4. 34 x 8 and half all poly patella. The patient was taken the operating, identified, and placed on the operating table in the supine position. All contact areas were appropriately padded. IV antibiotics tried by anesthesia team. A spinal anesthetic and adductor canal block had been applied in the holding area. A left thigh turn was then placed. The left lower extremity was then prepped and draped in usual sterile fashion. The left leg was elevated exsanguinated with use of an Esmarch and the tourniquet was placed at 300 mmHg. An anterior approach to the left knee was then performed to longitudinal incision centered over the patella. Sharp di ssection was carried through subcutaneous tissue down the extensor mechanism. Medial parapatellar arthrotomy incision was made present. Some slight subperiosteal dissection was carried out medially. The fat pad was resected from Neath patella tendon. Lateral patellofemoral ligament was released and the patella was subluxated laterally. The knee was flexed. The osteophytes taken on distal femur. The ACL and PCL were then released from the distal femur and the tibia subluxated anteriorly. The external tibial alignment jig was then placed on the anterior face of the tibia and adjusted 14 mm medially. Proximal tibial cut was made remove about a millimeter bone from most deficient aspect medial tibial plateau. The tibia sized to a size 79. Attention drawn the femur. The distal femur examined the sharp drill. Intramedullary canal was suction. A left 6 degree valgus cutting guide was placed for the distal femoral cutting block was pinned in place. This femoral cut was made to take an additional 3 mm of bone off distal femur. The femur was then sized to a size 67.5. The AP cutting block was pinned parallel to the epicondylar axis which was 5 degrees of external rotation. The anterior cut, anterior chamfer, posterior cut, posterior chamfer cuts were made. The box cutting guide was placed in just slight lateral and the box cut was made. The knee was flexed. The remnants of the medial and lateral menisci were excised. The osteophytes were taken off the posterior aspect of the femur. I did decompress the cyst posteriorly. The trial femoral component was then placed. The tibial tray was then pinned in maximum external rotation and the drill and stem punch were used to create defect in proximal tibia for the tibial tray. The knee was then trialed and the 12 mm insert fit most appropriately. Attention drawn to the patella. The patella was cleaned of all soft tissues. Patella thickness measured 23 mm in thickness was cut down to 14. Was sized to a size 34 patella. The lug holes were drilled for 34 patella. The lateral osteophyte was removed. Patella button was placed. Knee was taken through range of motion patella tracked nicely with no thumbs test. Attention drawn to placing the permanent components. Nupathe all trial components were removed. Bone plug was placed in the distal femur limit blood loss. Double batch Palacos G cement was mixed. A Biomet Vanguard size 67.5 left Po stabilized femoral component, size 79 tibial tray, a 12 mm post stabilized polyethylene insert, and a 34 x 8 and half all poly patella then cemented in place. The knee was brought out into full extension till the cement hardened. Final cement check was then performed. The pericapsular tissues were injected with total of 100 cc of orthopedic joint mix. The patient did receive 1 g tranexamic acid. The tourniquet was let down for final tourniquet time 62 minutes. Hemostasis assured use electrocautery. Wound was once again irrigated. The extensor Metros then closed with combination 1 PDS suture #1 Vicryl suture in [id number] fashion. Extensor Meclomen checked found to be intact. Subcutaneous tissues were then Boze with 2-0 Dexon suture in a buried interrupted fashion. Skin was closed skin ramon. Leg was then cleaned and dried and sterile dressing was Xeroform, 4 fours, sterile cast padding, Jamie bandage were applied. Patient then transferred to the recovery room in stable condition. Patient tolerated procedure well and there are no complications. Nicholas Dubon, my physician under water assistant, was present for the entire procedure. His assistance was essential and required for appropriate patient positioning, prepping and draping, surgical exposure, performing the technical details of the operation, placement the implants, closure of the wound, and placement of the sterile bandage. I attest to the content of the Intraoperative Record and any orders documented therein. Any exceptions are noted below.
--- NOTE | 2023-12-31 14:01 | Anesthesiology Progress Note ---
Date of Service December 31, 2023 Anesthesia Post Procedure Vital Signs Vital Signs: Temp Pulse Resp BP Pulse Ox O2 Del Method O2 Flow Rate 12/31/23 13:45 61 17 143/74 H 96 Room Air 12/31/23 13:35 58 L 19 137/78 97 Oxymask 3 12/31/23 13:25 53 L 22 127/72 98 Oxymask 5 12/31/23 13:15 48 L 18 118/61 98 Oxymask 5 12/31/23 13:05 97.0 F L 50 L 15 118/59 L 99 Oxymask 7 12/31/23 10:02 97.7 F 58 L 20 149/80 H 99 Room Air Transfer of Care Handoff Completed per policy Notes Mental Status: alert / awake / arousable and participated in evaluation Patient Amnestic to Procedure: Yes Nausea / Vomiting: adequately controlled Pain: adequately controlled Airway Patency, RR, SpO2: stable & adequate BP & HR: stable & adequate Hydration State: stable & adequate Neuraxial Anesthesia: was administered and sensory block is resolving Anesthetic Complications: no major complications apparent and Pt Satisfied with anesthetic care
--- NOTE | 2023-12-31 14:18 | XRay Report ---
XR knee LT 1 or 2V routine HISTORY: 68 years-old Male Surgical Post Op left knee arthroplasty COMPARISON: 09/04/2023 TECHNIQUE: 2 views of the left knee FINDINGS: Total joint arthroplasty with patellar resurfacing. Anterior midline skin ramon with expected posto perative soft tissue swelling and deep tissue air. Arterial calcifications. IMPRESSION: Total joint arthroplasty with expected postoperative changes. ACT 112: Negative or not required by law. The above report was generated using voice recognition software. It may contain grammatical, syntax o r spelling errors. Electronically signed by: Alfredo Allen M.D. 12/31/2023 2:16 PM
[2023-12-31] MEDS ORDERED: MAGNESIUM HYDROXIDE SUSP 30 ML UDC PO PRN (15:54)
[2023-12-31] MEDS ORDERED: BETA TCP PO SCH (15:54)
[2023-12-31] MEDS ORDERED: ALUMINUM/MAGNESIUM SUSP 30 ML UDC PO PRN (15:54)
[2023-12-31] MEDS ORDERED: MANGANESE PO SCH (15:54)
[2023-12-31] MEDS ORDERED: NALOXONE HCL 0.4 MG/1 ML VIAL/CARP IV PRN (15:54)
[2023-12-31] MEDS ORDERED: PHARMACY GLYCEMIC MGMT CONSULT PRN (15:54)
[2023-12-31] MEDS ORDERED: [UNRECOGNIZED DRUG - OTHER] PO SCH (15:54)
[2023-12-31] MEDS ORDERED: bisacodyL 10 MG SUPP PR PRN (15:54)
[2023-12-31] MEDS ORDERED: METOCLOPRAMIDE HCL INJ 5 MG/ML 2 ML VIAL IV PRN (15:54)
[2023-12-31] MEDS ORDERED: [UNRECOGNIZED DRUG - OTHER] PO PRN (15:54)
[2023-12-31] MEDS ORDERED: HYDROmorphone INJ 0.5 MG/0.5 ML SYR IV PRN (15:54)
[2023-12-31] MEDS ORDERED: NON-FORMULARY MEDICATION (Zinc 25 mg Tablet) PO PRN (15:54)
[2023-12-31] MEDS ORDERED: [UNRECOGNIZED DRUG - OTHER] PO SCH (15:54)
[2023-12-31] MEDS ORDERED: [UNRECOGNIZED DRUG - OTHER] PO PRN (15:54)
[2023-12-31] MEDS ORDERED: KYOLIC PO PRN (15:54)
[2023-12-31] MEDS: SODIUM CHLORIDE 0.9% 1,000 ML IV SCH (16:21)
[2023-12-31] MEDS: Scopolamine CHECK PATCH PLACEMENT SCH (16:22)
[2023-12-31] MEDS: KETOROLAC TROMETHAMINE 15 MG/ML VIAL IV SCH (16:31)
[2023-12-31] MEDS: ASCORBIC ACID 500 MG TAB PO SCH (16:34)
[2023-12-31] MEDS ORDERED: GLUCAGON FOR INJ 1 MG VIAL IM PRN (16:45)
[2023-12-31] MEDS ORDERED: CARBOHYDRATES FOR HYPOGLYCEMIA PO PRN (16:45)
[2023-12-31] MEDS ORDERED: DEXTROSE 50% 50 ML SYRINGE IV PRN (16:45)
[2023-12-31] MEDS ORDERED: GLUCOSE 10 TAB/TUBE PO PRN (16:45)
[2023-12-31] MEDS ORDERED: GLUCOSE 40% GEL 15 GM TUBE PO PRN (16:45)
[2023-12-31] MEDS: INSULIN ASPART PER UNIT CHARGE SC SCH (17:23)
[2023-12-31] MEDS: ceFAZolin 1000MG 1,000 MG/7.5 ML SYR IV SCH (18:36)
[2023-12-31] MEDS: TRANEXAMIC ACID / 0.7% NACL 1,000 MG/100 ML BAG IV SCH (18:38)
[2023-12-31] MEDS: SIMVASTATIN 80 MG TAB PO SCH (19:45)
[2023-12-31] MEDS: SENNA 8.6 MG TAB PO SCH (19:45)
[2023-12-31] MEDS: DOCUSATE SODIUM 100 MG CAP PO SCH (19:46)
[2023-12-31] MEDS: ASPIRIN 81 MG ECTAB PO SCH (19:46)
[2023-12-31] MEDS ORDERED: [UNRECOGNIZED DRUG - REMARK] PO SCH (21:00)
[2023-12-31] MEDS ORDERED: [UNRECOGNIZED DRUG - OTHER] PO SCH (21:00)
[2023-12-31] MEDS ORDERED: MAGNESIUM COMPLEX PO SCH (21:00)
[2023-12-31] MEDS ORDERED: SENNA 8.6 MG TAB PO SCH (21:00)
[2023-12-31] MEDS: LANTUS PER UNIT CHARGE SC SCH (21:34)
[2023-12-31] MEDS: oxyCODONE HCL IR 5 MG TAB (IMMEDIATE RELEASE) PO PRN (22:29)
[2024-01-01 07:30] LABS: Hematocrit (blood only) 32.1 % (42.0-52.0); Hemoglobin 10.7 g/dl (14.0-18.0); Mean Corpuscular Hemoglobin 29.9 pg (25.0-34.0); Mean Corpuscular Hgb Conc 33.3 g/dL (32.0-36.0); Mean Corpuscular Volume 89.7 fL (80.0-100.0); Mean Platelet Volume 9.6 fL (9.4-12.4); Platelet Count 159 K/uL (130-400); RDW Standard Deviation 46.4 fL (36.4-46.3); Red Blood Count 3.58 M/uL (4.70-6.10); White Blood Count 8.38 K/ul (4.8-10.8)
[2024-01-01] MEDS: dexAMETHasone 10 MG in SYRINGE 0 ML IV SCH (07:42)
[2024-01-01 07:57] LABS: Calcium 7.9 mg/dl (8.6-10.3); Potassium 3.8 mmol/L (3.5-5.1)
[2024-01-01 08:03] LABS: Creatinine Clr Calc Pharmacy 62.2 ml/min; Est GFR (African American) 77.3 ml/min; Est GFR (Non-African American) 66.7 ml/min
[2024-01-01] MEDS: TAMSULOSIN HCL 0.4 MG CAP PO SCH (08:26)
[2024-01-01] MEDS: MULTIVITAMIN TAB PO SCH (08:26)
[2024-01-01] MEDS ORDERED: [UNRECOGNIZED DRUG - OTHER] PO SCH (09:00)
--- NOTE | 2024-01-01 11:45 | Orthopedic Progress Note ---
Date of Service January 01, 2024 Assessment & Plan (1) Status post left knee replacement: Overall, he is doing quite well today with good pain control to the left knee. He will work with physical therapy later this morning to work on ambulation and range of motion exercises. He is on aspirin for DVT prophylaxis. He can be discharged home later this morning pending formal physical therapy evaluation and recommendations. He will follow-up with Dr. Heck in 2 weeks for postoperative management. Subjective . Mauro was seen and evaluated this morning resting comfortably in no apparent distress. He notes that his pain is well-controlled the left knee. He has yet to be seen by physical therapy today. He has been up and out of bed with no significant issues. He denies any other concerns today. Review of Systems All systems reviewed & are unremarkable except as noted in HPI & below. Physical Exam . On physical examination of left knee, dressings are clean, dry, intact. His leg is out in full extension. He has active plantarflexion dorsiflexion of the left ankle. +2 DP and PT pulses. Less than 2-second capillary refill. Normal sensation. Neurovascular intact. Results & Data Results & Data Laboratory Results . Diagnostic Findings . Postoperative x-rays the left knee show prosthesis to be in anatomical alignment with no signs of fracture complication or loosening. PG Care Time/CCT Total # of Minutes Spent Total Time Spent with Patient: Total time spent is greater than 50% in coordination of care (as documented) at patient's floor/unit and/or counseling patient: Coding Level of Care Code 54822 Post Operative Follow-Up Diagnoses Status post left knee replacement Z96.652
--- NOTE | 2024-01-01 11:46 | Discharge Summary ---
Date of Service January 01, 2024 Principal Diagnosis Same as "Discharge Diagnosis" noted below under Discharge Instructions. Discharge Exam . On physical examination of left knee, dressings are clean, dry, intact. His leg is out in full extension. He has active plantarflexion dorsiflexion of the left ankle. +2 DP and PT pulses. Less than 2-second capillary refill. Normal sensation. Neurovascular intact. Discharge Data Procedures Performed Operation Date: 12/31/23 10:40 Actual Procedures p Left Total Knee Arthroplasty(Left) - Deandre Heck MD Ordered Studies 12/31/23 05:00 US - OR guided needle placemen Routine Hospital Course (1) Status post left knee replacement: On December 31, 2023 Mauro arrived at [facility] and underwent a left total knee arthroplasty performed by Dr. Heck with no complications. He had a spinal anesthetic. Postoperatively, he was started on aspirin for DVT prophylaxis and transferred to the general orthopedic floor in stable condition. His hospital course was uneventful. On postoperative day #1, his vital signs were stable and his pain was well-controlled. He participated well with physical therapy working on ambulation and range of motion exercises. He was then discharged home in stable condition. He will follow-up in [address] Heck for postoperative management. PG Care Time/CCT Total # of Minutes Spent Total Time Spent with Patient: Total time spent is greater than 50% in coordination of care (as documented) at patient's floor/unit and/or counseling patient: Discharge Plan Discharge Items Patient Disposition: Home - Home Health Services Reason For Visit: Left Knee Degenerative Joint Disease Discharge Diagnosis: Left Knee Replacement Activity: Per Instructions section Weightbearing: Full weightbearing Non-emergency contact: Surgeon Call non-emergency contact if: you have any medication questions Follow-up/Referrals: Lul Martinez MD [Primary Care Provider] - Diet: Carb Consistent or DM2 Addtl Attending Provider Instructions: ACTIVITY RECOMMENDATIONS: Physical Therapy: * You will go to physical therapy three times each week for four to six weeks after your surgery in order to regain your knee range of motion and to retrain your knee to work properly. * It is just as important to make sure you are getting your knee perfectly straight as it is to regain your knee bend. * Taking a pain pill an hour before therapy can help you have a more productive and comfortable therapy session. Home Exercise: * You were shown a series of exercises (heel props, heel slides, etc.) in the hospital. Do these exercises three to four times each day including the exercises you were shown in physical therapy. Walking: * Get up and walk several times each day. For the first four weeks, try not to stand or walk for more than one hour at a time. If you do stand or walk for more than one hour, you will not hurt anything, but your knee and leg will likely swell. * As you feel comfortable, you may change from the walker or crutches to a cane and then to independent walking. MEDICATIONS: New Medicine: * You will likely be taking one or more of these medications: 1. Oxycodone - A quick and shorter-acting pain medication. Take one to two tablets every six hours to lessen your pain. 2. Aspirin - Thins your blood to lessen the chance of forming a blood clot. * The most common side effects of pain medicine and iron are nausea and constipation. If nausea or constipation is too much of a problem or if you have any questions about your new medicines or doses, call [facility] at [phone]. We will try to help you manage these issues. "VERY IMPORTANT TO READ AND REVIEW" Pain: * The immediate post-operative period after knee replacement surgery is often quite painful. * You are given a prescription for pain medicine. You should take it, as directed, when you need it, especially before physical therapy and before going to bed. Pain that interferes with sleep is very common and can last several months. * You will likely need pain medicine for the first four to six weeks. It will not stop all of the pain. The pain will lessen and as you feel better, you may change to milder pain medicine such as Tylenol. * The most common side effects of pain medicine are nausea and constipation, so don't take more than you need. SPECIAL CARE INSTRUCTIONS: TEDs/Elastic Stockings: * The white elastic stockings help limit swelling and prevent blood clots from forming in your legs. The more you wear them, the more they work. * Wear them for six weeks after knee replacement surgery and four weeks after partial knee replacement. Incision Site Care: * Remove dressing postoperative day 2 and then shower. Keep direct shower pressure off the incision site. * After showering, cover ramon with dry gauze and change daily or more frequently if the dressing is getting saturated with drainage. * Use the AURY stockings to hold dressing in place. DO NOT apply tape on the skin. * May completely stop using bandage if wound is dry and no drainage * [place] are removed between 2 and 3 weeks post-op. If your follow-up appointment is made before 2 weeks, please have your appointment re- scheduled. It is too early to remove the ramon. Prevention of Infection: * Take antibiotics one hour before any dental cleaning, dental work, urological procedure, gastrointestinal procedure or any invasive surgery in order to prevent your new joint from getting infected. * You may get the antibiotics from the doctor performing the procedure or you may call our office at [phone] before and we will call in a prescription to the pharmacy of your choice. Things to Watch For: * Drainage from the incision site that occurs more than one week after your surgery. * Severely increased knee/leg pain or swelling. * Increased redness at the incision site. * Fever above 102 degrees Fahrenheit. * Unusual chest pain or shortness of breath. * Unusual pain or burning with urination. Call [facility] at [phone] with any of the above problems or if you have any questions about your medicines or recovery. FOLLOW UP VISIT: Make an appointment to see your doctor for approximately two weeks after surgery for a progress check and staple removal by calling the office at [phone]. Pending Studies at Discharge: No Stand-Alone Forms: [facility], Pain - Opioid Pain Management, Smoking Cessation Medications and DC Order Prescriptions: Continued simvastatin 80 mg tablet 80 mg PO HS Qty: 90 3RF Patient Comments: planning to switch to morning (DME) Wheeled Walker [facility] See Rx Instructions .MEDSUPPLY Qty: 1 0RF Rx Instructions: As directed ondansetron 4 mg tablet,disintegrating 4 mg PO Q8 PRN (Reason: nausea) Qty: 20 1RF Rx Instructions: Take as needed for nausea oxycodone 5 mg tablet 5 - 10 mg PO Q6 PRN (Reason: pain) Qty: 40 0RF Rx Instructions: Take as needed for pain ketorolac 10 mg tablet 10 mg PO Q6 5 Days Qty: 20 0RF Rx Instructions: Take 4 times per day with food for 5 days to lessen pain and swelling. sennosides [Senokot] 8.6 mg tablet 8.6 mg PO BID 14 Days Qty: 28 0RF Rx Instructions: Take two times a day to prevent/treat constipation aspirin [Tyra Low Dose Aspirin] 81 mg tablet,delayed release (DR/EC) 81 mg PO BID 45 Days Qty: 90 0RF Rx Instructions: Take to prevent blood clots. acetaminophen [Tylenol Extra Strength] 500 mg tablet 1,000 mg PO TID 30 Days Qty: 180 0RF Rx Instructions: Take 3 times per day to lessen pain. cefadroxil 500 mg capsule 500 mg PO BID 7 Days Qty: 14 0RF Rx Instructions: Take 1 cap twice a day to prevent infection tamsulosin [Flomax] 0.4 mg capsule 0.4 mg PO DAILY Qty: 7 0RF Rx Instructions: Begin night BEFORE surgery to prevent urinary retention BETA TCP 1 tab PO 2XWK manganese Tablet 1 tab PO 3XWK Patient Comments: MANGANESE B 12 - DAYS VARY - HS PER zinc 25 mg Tablet 25 mg PO UD PRN (Reason: when immune system is down) Basic Nine 1 tab PO 3XWK Patient Comments: mon, wed and fri in morning Bio - Dk 1 cap PO UD PRN (Reason: helps with immune system) Essential Biotic 1 tab PO WK Patient Comments: thursday at supper Magnesium Complex 1 cap PO HS Premier B.P. Complex 1 tab PO QAM aspirin 81 mg tablet,delayed release (DR/EC) 81 mg PO 3XWK Patient Comments: mon, wed, fri morning Kazakh Black Radish 1 tab PO BID Rx Instructions: 1-2 tabs Bio C Plus 1000 1 cap PO UD PRN (Reason: prn) Patient Comments: mon, wed , fri bedtime Kyolic 1 cap PO UD PRN (Reason: circulation) Epa/[employer] Fish Oil 1 cap PO QPM Patient Comments: tadalafil [Cialis] 5 mg tablet 5 mg PO QAM Krames/Other Patient Handouts: DVT Post Op Prevention Admission Data Admit Date/Time: 12/31/23 13:04 Attending Provider: Deandre Heck Admit Provider: Deandre Heck Primary Care Provider: Lul Martinez Other Interventions: Discharge Summary Assessment (RN) Last Done: 01/01/24 09:36
== END 2024-01-01 10:34 | disposition home or self-care (01) ==
LOC: ASU 09:01 → 3E 09:01

== ENCOUNTER 2024-12-01 10:47 | Observation (INO) ==
--- NOTE | 2024-11-02 11:31 | PAT Medication Instructions ---
Medication Instructions Date of Service November 02, 2024 Home Medications Medication Instructions Recorded Solo Bah #1 ea 12/22/23 tadalafil 5 mg tablet (Cialis) 5 mg PO QAM #30 tabs 06/07/24 manganese 1 tab PO 3XWK Magnesium Complex 1 cap PO HS zinc 25 mg tablet 25 mg PO UD PRN when immune system is down tadalafil 5 mg tablet (Cialis) 5 mg PO QAM Kyolic 1 cap PO .COMPLEX PRN circulation Moducare 1 cap PO QAM Premier B.P. Complex 1 tab PO QAM Saccharomyces boulardii 250 mg capsule (Probiotic (S.boulardii)) 250 mg PO WK aspirin 81 mg tablet,delayed release (Adult Low Dose Aspirin) 81 mg PO UD fibrenza 1 cap PO QAM ligaplex 1 1 cap PO 3XWK multivitamin,tx-minerals 1 cap PO UD simvastatin 80 mg tablet 80 mg PO 3XWK Proberry 1 tab PO UD PRN immune health amoxicillin 500 mg tablet 2,000 mg PO ONCE PRN prior to dental procedures fish oil-dha-epa 1,200 mg-144 mg-216 mg capsule 1 cap PO UD pantoprazole 40 mg tablet,delayed release 40 mg PO QAM vitamin D3 1,250 mcg (50,000 unit)-vitamin K2 200 mcg capsule 1 cap PO DAILY PRN immune system support Continue as directed amoxicillin 500 mg tablet 2,000 mg PO ONCE PRN prior to dental procedures simvastatin 80 mg tablet 80 mg PO 3XWK ASK your prescriber and surgeon aspirin 81 mg tablet,delayed release (Adult Low Dose Aspirin) 81 mg PO UD STOP taking 2 weeks before surgery (or as soon as possible if surgery is within 2 weeks) manganese 1 tab PO 3XWK Magnesium Complex 1 cap PO HS zinc 25 mg tablet 25 mg PO UD PRN when immune system is down Kyolic 1 cap PO .COMPLEX PRN circulation Moducare 1 cap PO QAM Premier B.P. Complex 1 tab PO QAM fibrenza 1 cap PO QAM ligaplex 1 1 cap PO 3XWK multivitamin,tx-minerals 1 cap PO UD Proberry 1 tab PO UD PRN immune health fish oil-dha-epa 1,200 mg-144 mg-216 mg capsule 1 cap PO UD vitamin D3 1,250 mcg (50,000 unit)-vitamin K2 200 mcg capsule 1 cap PO DAILY PRN immune system support DO NOT take the morning of surgery Saccharomyces boulardii 250 mg capsule (Probiotic (S.boulardii)) 250 mg PO WK Take morning of surgery With a small sip of water, OTHERWISE NOTHING TO EAT OR DRINK AFTER MIDNIGHT: tadalafil 5 mg tablet (Cialis) 5 mg PO QAM pantoprazole 40 mg tablet,delayed release 40 mg PO QAM Other Notes If you have any questions please call us at [phone] or [phone] or [phone] or [phone]
--- NOTE | 2024-11-07 12:20 | Anesthesiology Consultation ---
Date of Service November 07, 2024 Assessment & Plan (1) Encounter for pre-operative examination: - Infectious disease screening: Per assessment on 11/07/24- No known recent infectious disease contacts or current infectious disease symptoms. - Outpatient joint assessment: Pt currently scheduled for inpatient pathway. If surgeon requests review for outpatient joint pathway, patient is not recommended candidate for outpatient joint program from anesthesia standpoint based on available information. - S/P Left TKA (12/31/23): SAB at L3/4 (1 attempt) + regional at [facility] - Vascular surgery visit (09/23/24): 2 week f/u after undergoing left leg angiography with embolization of geniculate branches.. Patient was indicated due to persistent hemarthrosis of the left knee joint after TKA.. Patient is overall doing well since his recent procedure. His puncture site is well-healed at this point and his geniculate artery branch embolization will hopefully prevent any further hemarthrosis. Patient will return here on an as-needed basis." - PCP visit (10/27/24): "B/L ing pain- recommend repeat US.. gen surg consult.. c/o neck pain-?musculoskeletal etio vs other.. clinic exam normal.. plan US of soft tissue and thyroid.. GERD-add pantoprazole.. f/u in 2 months-if not better then EGD. If better change PPI to [id number].. If patient does proceed with right total knee arthroplasty within the next month based on my evaluation of him today I think he is medically stable for the planned procedure. He has already undergone left total knee arthroplasty without cardiovascular event. The patient today has noted no signs or symptoms to suggest new cardiopulmonary problem. Reflux can be treated with pantoprazole. Neurologic concerns." - General surgery visit (11/07/24): "Recurrent left inguinal hernia.. This is small and fat filled and completely asymptomatic. I am hesitant to put him through a laparoscopic repair because this caused worsening pain on his right side. We gave him signs and symptoms to watch for and if the hernia enlarges or becomes symptomatic he is to call me immediately. As is I think it is a very low risk for bowel incarceration and/or injury. Regarding his chronic right inguinal pain I do believe we should refer him the pain management to see if they can perhaps help ablate the right ilioinguinal nerve which may give him some relief. He is agreeable to this. We will refer him accordingly" Chart Review Chart Review: Acceptable Risk for Surgery and Patient seen in Pre Admission Testing Teaching & Discussion Pre-Anesthesia Teaching/Discussion Notes: Instructed NPO after midnight before surgery,except medications with 15 cc of water. Medication instructions provided according to the PAT guidelines. History Surgery Operation Date: 06/28/24 08:50 Proposed Procedures p Right Total Knee Arthroplasty - Deandre Heck MD Operation Date: 12/01/24 12:30 Proposed Procedures p Right Total Knee Arthroplasty - Deandre Heck MD Height/Weight Height: 5 ft 9 in Weight: 82.1 kg Allergies Allergy/AdvReac Type Severity Reaction Status Date / Time capsaicin Allergy Mild Left neck Verified 11/07/24 09:17 pain, hot flashes diclofenac Allergy Mild Left neck Verified 11/07/24 09:17 pain, hot flashes latex Allergy Mild Skin Verified 11/07/24 09:17 irritation suprofen Allergy Mild Left neck Verified 11/07/24 09:17 pain, hot flashes codeine AdvReac Intermediate N/V Verified 11/07/24 09:17 Sulfa (Sulfonamide AdvReac Intermediate GI upset Verified 11/07/24 09:17 Antibiotics) ADHESIVE Allergy Mild Red rash Uncoded 11/07/24 09:17 Medications Home Medications Medication Instructions Recorded Confirmed Last Taken manganese 1 tab PO 3XWK 05/01/20 11/02/24 08/28/24 21:00 Magnesium Complex 1 cap PO HS 07/17/22 11/02/24 12/17/23 zinc 25 mg tablet 25 mg PO UD PRN when immune system 07/17/22 11/02/24 12/17/23 is down Wheeled Walker #1 ea 12/22/23 10/27/24 Unknown tadalafil 5 mg tablet (Cialis) 5 mg PO QAM #30 tabs 06/07/24 11/02/24 08/28/24 08:00 Kyolic 1 cap PO .COMPLEX PRN circulation 10/27/24 11/02/24 Unknown Moducare 1 cap PO QAM 10/27/24 11/02/24 Unknown Premier B.P. Complex 1 tab PO QAM 10/27/24 11/02/24 Unknown Saccharomyces boulardii 250 mg 250 mg PO WK 10/27/24 11/02/24 Unknown capsule (Probiotic (S.boulardii)) aspirin 81 mg tablet,delayed 81 mg PO UD 10/27/24 11/02/24 Unknown release (Adult Low Dose Aspirin) fibrenza 1 cap PO QAM 10/27/24 11/02/24 Unknown ligaplex 1 1 cap PO 3XWK 10/27/24 11/02/24 Unknown multivitamin,tx-minerals 1 cap PO UD 10/27/24 11/02/24 Unknown simvastatin 80 mg tablet 80 mg PO 3XWK 10/27/24 11/02/24 Unknown Proberry 1 tab PO UD PRN immune health 11/02/24 11/02/24 Unknown amoxicillin 500 mg tablet 2,000 mg PO ONCE PRN prior to 11/02/24 11/02/24 Unknown dental procedures fish oil-dha-epa 1,200 mg-144 1 cap PO UD 11/02/24 11/02/24 Unknown mg-216 mg capsule pantoprazole 40 mg tablet,delayed 40 mg PO QAM 11/02/24 11/02/24 Unknown release vitamin D3 1,250 mcg (50,000 1 cap PO DAILY PRN immune system 11/02/24 11/02/24 Unknown unit)-vitamin K2 200 mcg capsule support cephalexin 500 mg capsule 500 mg PO TID 11/07/24 11/07/24 Unknown Past Medical History Medical History Bigeminy Hx BPH w urinary obs/LUTS GERD (gastroesophageal reflux disease) Hearing deficit Hiatal hernia Hyperlipidemia Lumbar disc disease Multiple pulmonary nodules Hx Nontoxic multinodular goiter Under suveillance by PCP per patient Osteoarthritis Prediabetes PVCs (premature ventricular contractions) Hx "benign PVCs" Asymptomatic Sleep apnea CPAP (compliant) Trigeminy Hx Exercise / Class Metabolic Activity II 4-5 Yardwork/Stairs/Walk up hill (one FS: No CP, no SOB) Past Family History Family History Mother Diabetes Coronary heart disease Heart disease Chronic kidney disease Myocardial infarction Cancer Thyroid Hypertension Stroke Father Heart disease Myocardial infarction Hypertension Stroke Sister Hepatitis Diabetes Other No family history of adverse response to anesthesia Denies family history of Ovarian cancer Prostate cancer Breast cancer Colorectal cancer Past Surgical History Surgical History History of arthroscopy of right shoulder History of carpal tunnel surgery of right wrist History of colonoscopy Hx of foot surgery right big toe Hx of inguinal hernia repair 05-15-03 [facility] repair Dr. Hughes 01-23-03 [facility] repair Dr. Hughes 12-31-17 [facility] repair Dr. Go Hx of oral surgery wisdom teeth extraction S/P arteriogram of extremity (09/14/24) left lower extremity Status post left knee replacement Left TKA (12/31/23): SAB at L3/4 (1 attempt) + regional at [facility] Past Anesthesia History No Hx of Anesthesia Complications and No Family Hx of Anesthesia Complications History of PONV No Hx of Motion Sickness and History of PONV Social History Smoking Status: Never smoker Do You Dip or Chew Tobacco: No Hx Alcohol Use: No Hx Substance Use: No substance use type: does not use Review of Systems Left hand celluitis s/p urgent care evaluation 11/06/24. Currently taking cephale shraddha x 10 days (to be completed before surgery). Personally seen and evaluated by surgeon since urgent care visit per patient- nothing further needed from surgeon. Patient advised to contact surgeon/PAT if cellulitis not resolved after abx completion. Patient denies chest pain, shortness of breath, dyspnea on exertion, fever, chills, cough, wheezing, palpitations. Physical Exam Vital Signs BP 146/81 P 54 TEMP 97.9 SP02 93%RA RESP 16 Physical Full cervical extension range of motion. Full TMJ range of motion. TMD > 3.5 finger breaths Mallampati Score II Dentition: intact, + crowns Lungs: clear throughout to auscultation Cardiac: regular rate and rhythm, no murmurs noted Spine: normal Carotid arteries: negative bruit Extremities: no LE edema Short poole Lab Results Anesthesia Preop Results Results Anesthesia Widget: WBC 3.08 K/ul (4.8-10.8) L 11/07/24 Hgb 13.2 g/dl (14.0-18.0) L 11/07/24 Hct 39.6 % (42.0-52.0) L 11/07/24 Plt 206 K/uL (130-400) 11/07/24 Na 139 mmol/L (136-145) 10/20/24 K 3.9 mmol/L (3.5-5.1) 10/20/24 Cl 104 mmol/L (98-107) 10/20/24 CO2 29 mmol/L (21-32) 10/20/24 BUN 16 mg/dl (6-23) 10/20/24 Creat 1.06 mg/dl (0.6-1.4) 10/20/24 Glucose Level 96 mg/dl (70-99(Fasting)) 10/20/24 PT 10.8 Seconds (9.0-12.0) 11/07/24 PTT 28 Seconds (21-31) 11/07/24 INR 1.0 (0.9-1.1) 11/07/24 TSH 2.199 uIu/ml (0.300-4.500) 10/27/24 HA1c 5.9 % (4.5-5.6) H 10/20/24 Urine Color Yellow 10/20/24 Urine Appearance Clear (Clear) 10/20/24 Urine pH 6.5 (4.5-7.5) 10/20/24 Urine Specific Clover 1.015 (1.000-1.030) 10/20/24 Urine Protein Negative (Negative) 10/20/24 Urine Glucose (UA) Negative (Negative) 10/20/24 Urine Ketones Negative (Negative) 10/20/24 Urine Blood Negative (Negative) 10/20/24 Urine Nitrite Negative (Negative) 10/20/24 Urine Bilirubin Negative (Negative) 10/20/24 Urine Urobilinogen Negative (Negative) 10/20/24 Urine Leukocyte Esterase Negative (Negative) 10/20/24 Blood Type O Positive 11/07/24 Antibody Screen NEGATIVE 11/07/24 Testing Electrocardiogram Date: 12/17/23 Sinus bradycardia, rate 54 bpm Nonspecific T wave abnormality Chest X-Ray Date: 12/17/23 No acute chest disease. Other Testing Thyroid ultrasound Date: 11/02/24 IMPRESSION: 1. Multinodular goiter with heterogenous parenchyma, indicating possible thyroiditis. Further lab and clinical evaluation is advised 2. Bilateral innumerable subcentimetric nodules, the largest on both lobes are of [id number]. Recommend FNA as clinically indicated 3. No time interval changes as compared with the prior. PCP monitoring, TSH WNL on 10/27/24 labs.
[~2024-12-01 10:47] MED LIST changes: -ALLERGY Noted to ORDERED Medication SCH; +BUPIVACAINE 0.25% PF 30 ML VIAL ONE; -ROPIVACAINE 0.5% 5 MG/ML 30 ML VIAL ONE
[2024-12-01] MEDS: CeleBREX 200 MG CAP PO SCH (11:19)
[2024-12-01] MEDS: FAMOTIDINE 20 MG TAB PO SCH (11:19)
[2024-12-01] MEDS: ACETAMINOPHEN 500 MG TAB PO SCH (11:19)
[2024-12-01] MEDS: LR 500ML BOLUS, THEN 15ML/HR IV SCH (11:19)
[2024-12-01] MEDS: LR 60ML/HR IV SCH (11:20)
[2024-12-01] MEDS: METOCLOPRAMIDE HCL 10 MG TABLET PO SCH (11:20)
--- NOTE | 2024-12-01 11:20 | History & Physical Bridge Note ---
Date of Service December 01, 2024 History & Physical Bridge Note I have examined the patient, reviewed the History & Physical and in the interval since the performance of the History & Physical I have noted the following changes of clinical significance: no changes noted
[2024-12-01] MEDS ORDERED: fentaNYL citrate PF 100 MCG/2 ML VIAL ONE (12:23)
[2024-12-01] MEDS ORDERED: PROPOFOL IV EMULSION 10 MG/ML 20 ML VIAL IV ONE ×2 (12:23→14:03)
[2024-12-01] MEDS ORDERED: MIDAZOLAM HCL 1 MG/ML 2ML VIAL ONE (12:23)
[2024-12-01] MEDS ORDERED: fentaNYL citrate PF 100 MCG/2 ML VIAL IV PRN (12:41)
[2024-12-01] MEDS ORDERED: ATROPINE SULFATE 0.1 MG/ML 10ML SYR IV PRN (12:41)
[2024-12-01] MEDS ORDERED: ePHEDrine sulfate 50 MG/ML AMP IV PRN (12:41)
[2024-12-01] MEDS ORDERED: ONDANSETRON INJ 2 MG/ML 2 ML VIAL IV PRN ×2 (12:41→17:22)
[2024-12-01] MEDS: ceFAZolin 2000MG 2,000 MG/15 ML SYR IV SCH ×2 (13:31→20:36)
[2024-12-01] MEDS: ORTHO JOINT ANESTHETIC ONE (14:03)
[2024-12-01] MEDS: ROPIV 0.5% 246mg, Ketorolac 30mg, EPINEPHrine 0.5mg in NSS INFIL SCH (14:03)
[2024-12-01] MEDS: TRANEXAMIC ACID 1,000 MG **IV Intra-op IV SCH (14:30)
--- NOTE | 2024-12-01 15:26 | Operative Report ---
"PG Post Operative Report Pre & Post Diagnosis Operation Date: 12/01/24 12:30 Pre-Op Diagnosis: Right Knee Osteoarthritis Post-Op Diagnosis: Right Knee Osteoarthritis I identified the patient and participated in the time-out.: Yes Procedure Operation Date: 12/01/24 12:30 Actual Procedures p Right Total Knee Arthroplasty(Right) - Deandre Heck MD Surgeon Deandre Heck MD Pre Assembly Wirer Nicholas Dubon PA-C Estimated Blood Loss 50 Findings Consistent with Post-Op Diagnosis Operative findings were advanced right knee DJD. He had extensive and significant grade 4 [id number] disease the entire medial compartment. A varus deformity to his knee. Fairly large Khan's cyst posteriorly. Specimens Right knee sent for pathology. 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 He had his left knee replaced about 10 months ago. He has done well clinically and subjectively but had recurrent effusions. He is undergone multiple evaluations for this which continue to show some blood-tinged effusions. AKIN he had several infectious workups which were all negative. He did have vascular embolization as well. He continued be bothered by his right knee pain. He failed all conservative measures. He was strongly desiring to have his right knee replaced. Description of Procedure Operative implants consist of: 1. Biomet Vanguard size 70 right posterior stabilized femoral component. 2. Biomet size 79 tibial tray. 3. 10 mm posterior stabilized polyethylene insert. 4. 34 x 8 and half all poly patella. The patient was taken to the operating room, identified, and placed on the operating table in the supine position. All contact areas were appropriately padded. IV antibiotics provided by the anesthesia team. A spinal anesthetic and adductor canal block had been provided in the holding area. A right thigh tourniquet was then placed. The right lower extremity was then prepped and draped in usual sterile fashion. The right leg was elevated and exsanguinated with use of an Esmarch and the turn was placed at 300 mmHg. An anterior approach of the right knee was then performed to longitudinal incision centered over the patella. Sharp dissection was got through subcutaneous tissues down to the level of the extensor mechanism. A medial parapatellar arthrotomy incision was made. Some subperiosteal dissection was carried out medially. The fat pad was resected from Neath patella tendon. The lateral patellofemoral ligament was released. Patella subluxated laterally and the knee was flexed. The osteophytes were taken off distal femur. The ACL and PCL were then released from distal femur the tibia subluxated anteriorly. The external tibial alignment jig was then placed on the interface the tibia and adjusted 12 mm medially. The proximal tibial cut was made remove about a millimeter bone at most from the most efficient aspect medial tibial plateau. Some osteophytes taken off medially. The tibia was sized to a size 79. Attention was then drawn to the femur. The distal femur was entered with a sharp drill. Intramedullary canal was suction. A right 6 degree valgus cutting guide was placed. The distal femoral cutting block was pinned in place. This femoral cut was made take an additional 3 mm of bone off distal femur. The femur was then sized to a size 70. The AP cutting block was pinned parallel to the epicondylar axis which was 3 degrees of external rotation. The anterior cut, anterior chamfer, posterior cut, posterior chamfer cuts were made. The box cutting guide was placed and just slight lat eral and the box cut was made. The knee was flexed. The remnants of the medial and lateral menisci were excised. The osteophytes taken off the posterior aspect the femur. A trial femoral component was placed. The tibial tray was pinned Florinda external rotation and the drill and stem punch were used to create defect in proximal tibia for the tibial tray. The knee was then trialed and the 10 mm insert fit most appropriately. Attention drawn the patella. The patella was cleaned of all soft tissues. Patella thickness measured 23 mm in thickness was cut down to 14. Was sized to a size 34 patella. The lug holes were drilled for 34 patella. The lateral osteophytes removed. Patella button was placed. Knee was taken through range of motion patella tracked nicely with no thumbs test. Attention was then drawn toward placement permanent components. Nupathe all trial components were removed. Bone plug was placed into this femur limit blood loss. A double batch [place] G cement was mixed. A [employer] Plus | [employer] Vanguard size 70 right posterior Byce femoral component, size 79 tibial tray, a 10 mm posterior stabilized polyethylene insert, and a 34 x 8 and half all poly patella then cemented in place. The knee was brought out into full extension till cement hardened. Final cement check was then performed. The pericapsular tissues were injected with total of 100 cc of Ortho mix. The patient did receive 1 g of tranexamic acid. The tourniquet was then let down for final tourniquet time of 61 minutes. Hemostasis assured use electrocautery. Extensor Meclomen closed with combination of #1 PDS suture #1 Vicryl suture in a [id number] fashion. Extensor Meclomen checked found be intact through subcutaneous tissues then closed with 2 Dexon suture in a buried interrupted fashion skin was closed skin ramon. Leg was then cleaned and dried and a sterile dressing was Xeroform, 4 fours, sterile ABD pad, sterile cast padding, Jamie bandage were applied. Patient was then transferred to the recovery room in stable condition. The patient tolerated the procedure well and there were no complications. Nicholas Dubon, my physician marketing assistant retail division, was present for the entire procedure. His assistance was essential and required for appropriate patient positioning, prepping and draping, surgical exposure, performing the technical details of the operation, placement the implants, closure of the wound, and placement of the sterile bandage. I attest to the content of the Intraoperative Record and any orders documented therein. Any exceptions are noted below."
--- NOTE | 2024-12-01 15:39 | XRay Report ---
XR knee RT 1 or 2V routine CLINICAL HISTORY: Surgical Post Op COMPARISON: 04/25/2020 FINDINGS: Right knee prosthesis shows no hardware complication is expected soft tissue gas. Skin sta ples are present. IMPRESSION: Unremarkable postoperative exam. ACT 112: Negative or not required by law. Electronically signed by: Mauro Magaña M.D. 12/01/2024 3:37 PM
--- NOTE | 2024-12-01 17:08 | Anesthesiology Progress Note ---
Date of Service December 01, 2024 Anesthesia Post Procedure Vital Signs Vital Signs: Temp Pulse Pulse Resp BP Pulse Ox O2 Del Method 12/01/24 16:55 60 18 126/80 94 Room Air 12/01/24 16:50 57 L 123/75 12/01/24 16:45 43 L 17 110/68 95 Room Air 12/01/24 16:35 45 L 13 116/70 96 Room Air 12/01/24 16:25 45 L 19 116/83 96 Room Air 12/01/24 16:15 43 L 14 112/69 95 Room Air 12/01/24 16:10 41 L 12/01/24 16:05 36.3 C L 47 L 21 126/67 96 Room Air 12/01/24 15:55 56 L 19 125/78 95 Room Air 12/01/24 15:45 45 L 17 113/65 94 Room Air 12/01/24 15:35 60 18 120/66 97 Oxymask 12/01/24 15:25 58 L 21 110/62 96 Oxymask 12/01/24 15:19 36.2 C L 57 L 15 101/57 L 95 Oxymask 12/01/24 10:54 36.7 C 61 18 141/83 H 92 Room Air O2 Flow Rate 12/01/24 16:55 12/01/24 16:50 12/01/24 16:45 12/01/24 16:35 12/01/24 16:25 12/01/24 16:15 12/01/24 16:10 12/01/24 16:05 12/01/24 15:55 12/01/24 15:45 12/01/24 15:35 4 12/01/24 15:25 14 12/01/24 15:19 14 12/01/24 10:54 Transfer of Care Handoff Completed per policy Notes Mental Status: alert / awake / arousable Patient Amnestic to Procedure: Yes Nausea / Vomiting: adequately controlled Pain: adequately controlled Airway Patency, RR, SpO2: stable & adequate BP & HR: stable & adequate Hydration State: stable & adequate Anesthetic Complications: no major complications apparent and Pt Satisfied with anesthetic care Notes: treated in pacu for bradycardia down to 39 with 0.6 glyco given in increments of 0.2. ekg performed which showed sinus claudy. suspect due to sympathetic blockade from spinal. improved with treatment and time.
[2024-12-01] MEDS ORDERED: MAGNESIUM HYDROXIDE SUSP 30 ML UDC PO PRN (17:22)
[2024-12-01] MEDS ORDERED: HYDROmorphone INJ 0.5 MG/0.5 ML SYR IV PRN (17:22)
[2024-12-01] MEDS ORDERED: bisacodyL 10 MG SUPP PR PRN (17:22)
[2024-12-01] MEDS ORDERED: MANGANESE PO SCH (17:22)
[2024-12-01] MEDS ORDERED: NALOXONE HCL 0.4 MG/1 ML VIAL/CARP IV PRN (17:22)
[2024-12-01] MEDS ORDERED: DOCOSAHEXAENOIC ACID PO SCH (17:22)
[2024-12-01] MEDS ORDERED: oxyCODONE HCL IR 5 MG TAB (IMMEDIATE RELEASE) PO PRN (17:22)
[2024-12-01] MEDS ORDERED: ALUMINUM/MAGNESIUM SUSP 30 ML UDC PO PRN (17:22)
[2024-12-01] MEDS ORDERED: METOCLOPRAMIDE HCL INJ 5 MG/ML 2 ML VIAL IV PRN (17:22)
[2024-12-01] MEDS ORDERED: NON-FORMULARY MEDICATION (Zinc 25 mg Tablet) PO PRN (17:22)
[2024-12-01] MEDS ORDERED: [UNRECOGNIZED DRUG - OTHER] PO SCH (17:22)
[2024-12-01] MEDS ORDERED: KYOLIC PO PRN (17:22)
[2024-12-01] MEDS ORDERED: FISH OIL PO SCH (17:22)
[2024-12-01] MEDS ORDERED: VITAMIN D3 VITAMIN K2 PO PRN (17:22)
[2024-12-01] MEDS: KETOROLAC TROMETHAMINE 15 MG/ML VIAL IV SCH (17:56)
[2024-12-01] MEDS: DOCUSATE SODIUM 100 MG CAP PO SCH (20:13)
[2024-12-01] MEDS: ASPIRIN 81 MG ECTAB PO SCH (20:13)
[2024-12-01] MEDS: SENNA 8.6 MG TAB PO SCH (20:13)
[2024-12-01] MEDS: TRANEXAMIC ACID / 0.7% NACL 1,000 MG/100 ML BAG IV SCH (20:15)
[2024-12-01] MEDS ORDERED: MAGNESIUM COMPLEX PO SCH (21:00)
[2024-12-01] MEDS ORDERED: ACETAMINOPHEN 500 MG TAB PO SCH (21:00)
[2024-12-01] MEDS ORDERED: SENNA 8.6 MG TAB PO SCH (21:00)
[2024-12-02 06:34] LABS: Hematocrit (blood only) 35.3 % (42.0-52.0); Hemoglobin 11.9 g/dl (14.0-18.0); Mean Corpuscular Hemoglobin 29.7 pg (25.0-34.0); Mean Corpuscular Hgb Conc 33.7 g/dL (32.0-36.0); Mean Platelet Volume 9.4 fL (9.4-12.4); Platelet Count 203 K/uL (130-400); RDW Coefficient of Variation 14.5 % (11.5-14.5); Red Blood Count 4.01 M/uL (4.70-6.10); White Blood Count 7.32 K/ul (4.8-10.8)
[2024-12-02 06:54] LABS: BUN Creatinine Ratio 15.9 (10-20); Calcium 8.5 mg/dl (8.6-10.3); Creatinine Clr Calc Pharmacy 54.6 ml/min; Potassium 4.4 mmol/L (3.5-5.1)
--- NOTE | 2024-12-02 07:33 | Orthopedic Progress Note ---
Date of Service December 02, 2024 Assessment & Plan (1) Status post right knee replacement: Plan: 69-year-old gentleman postop day 2 1 from right knee replacement doing pretty well. Pains controlled. He is neurologically intact. Plan: 1. DVT prophylaxis including thigh-high teds, SCDs, aspirin twice a day. 2. PT/OT. Weight-bear as tolerated. Right total knee protocol. 3. Pain control. Doing okay with current pain regimen. 4. Disposition. Plan is to discharge to home with some home health after therapy today. Admission and Anticipated Discharge Date Admission Date: December 01, 2024 Subjective 69-year-old gentleman postop day 1 from right knee replacement. He is doing pretty well. Pains controlled. Denies any chest pain or shortness of breath. Not feeling dizzy or lightheaded. Physical Exam Physical Exam: Physical nation was a pleasant middle-age male. Lying bed looks pretty comfortable. Examination of the right leg reveals leg to be well aligned. A little bit of bloody drainage through the dressing. He can do a straight leg raise. He can dorsiflex and plantarflex his foot appropriately. He is neurologically intact. Respiratory: normal respiratory effort, lungs clear to auscultation Gastrointestinal (Abdomen): normal bowel sounds, soft, nontender, no hepatosplenomegaly Results & Data Vital Signs (Past 12 Hours) Vital Signs Temp Pulse Resp BP Pulse Ox O2 Del Method 12/02/24 03:25 36.4 C L 62 16 120/81 95 Room Air 12/01/24 23:11 36.5 C 48 L 16 135/77 95 Room Air 12/01/24 20:09 36.5 C 56 L 16 145/85 H 96 Room Air Laboratory Results Hemoglobin is 11.9. Hematocrit is 35.3. Electrolytes are stable.
[2024-12-02 07:51] VITALS: BP 112/68; PULSE 55; RESP 20; TEMP 98.4; O2SAT 93
[2024-12-02] MEDS: SIMVASTATIN 80 MG TAB PO SCH (08:03)
[2024-12-02] MEDS: dexAMETHasone 10 MG in SYRINGE 0 ML IV SCH (08:03)
[2024-12-02] MEDS: TAMSULOSIN HCL 0.4 MG CAP PO SCH (08:04)
[2024-12-02] MEDS: MULTIVITAMIN TAB PO SCH (08:04)
[2024-12-02] MEDS: PANTOprazole 40 MG TAB PO SCH (08:04)
[2024-12-02] MEDS: ASCORBIC ACID 500 MG TAB PO SCH (08:57)
[2024-12-02] MEDS ORDERED: [UNRECOGNIZED DRUG - OTHER] PO SCH (09:00)
--- NOTE | 2024-12-02 14:06 | Electrocardiogram Report ---
Test Reason : Blood Pressure : */* mmHG Vent. Rate : 41 BPM Atrial Rate : 41 BPM P-R Int : 190 ms QRS Dur : 108 ms QT Int : 464 ms P-R-T Axes : 41 -6 -31 degrees QTcB Int : 382 ms Marked sinus bradycardia Nonspecific T wave abnormality Abnormal ECG When compared with ECG of 17-Dec-2023 11:33, Questionable change in QRS axis Nonspecific T wave abnormality now evident in Anterolateral leads Confirmed by Mauri Damico ([id number]) on 12/02/2024 2:05:34 PM Referred By: Deandre Heck Confirmed By: Mauri Damico
--- NOTE | 2024-12-05 06:38 | Discharge Summary ---
Date of Service December 05, 2024 Principal Diagnosis Same as "Discharge Diagnosis" noted below under Discharge Instructions. Discharge Data Procedures Performed Operation Date: 12/01/24 12:30 Actual Procedures p Right Total Knee Arthroplasty(Right) - Deandre Heck MD Ordered Studies 12/01/24 05:00 US - OR guided needle placemen Routine Hospital Course (1) Status post right knee replacement: This is a 69 year old patient admitted on 12/01/24 and underwent total knee arthr oplasty. He tolerated the procedure well and there were no complications. Transferred to the PACU post op and later to the orthopedic floor for further care. He was given ancef for antibiotic prophylaxis. He was also given AURY stockings, SCDs, and aspirin for DVT prophylaxis. Hemoglobin, hematocrit, and vital signs were monitored during his hospital stay and remained stable. Did not require any blood transfusions. There were no complications during his hospital stay. By post op day #1 the patient was tolerating a regular diet, pain was reasonably controlled with oral pain medicine, and he was participating in physical therapy. On post op day #1 the patient was discharged home and set up with home health care. He was given printed discharge instructions including prescriptions for extra strength tylenol, aspirin, cefadroxil, ketorolac, zofran, senokot, flomax, and oxycodone. Continue physical therapy, weight bearing as tolerated. Continue AURY stockings. Follow up approximately 2 weeks post op or sooner if there are problems or concerns. Discharge Plan Discharge Items Patient Disposition: Home - Home Health Services Reason For Visit: Right Knee Osteoarthritis Discharge Diagnosis: Right Knee Replacement Activity: Per Instructions section Weightbearing: Full weightbearing Non-emergency contact: Surgeon Call non-emergency contact if: you have any medication questions Follow-up/Referrals: Lul Martinez MD [Primary Care Provider] - Diet: Regular Addtl Attending Provider Instructions: ACTIVITY RECOMMENDATIONS: Diet: * You may resume previous diet. Physical Therapy: * You will go to physical therapy three times each week for four to six weeks after your surgery in order to regain your knee range of motion and to retrain your knee to work properly. * It is just as important to make sure you are getting your knee perfectly straight as it is to regain your knee bend. * Taking a pain pill an hour before therapy can help you have a more productive and comfortable therapy session. Home Exercise: * You were shown a series of exercises (heel props, heel slides, etc.) in the hospital. Do these exercises three to four times each day including the exercises you were shown in physical therapy. Walking: * Get up and walk several times each day. For the first four weeks, try not to stand or walk for more than one hour at a time. If you do stand or walk for more than one hour, you will not hurt anything, but your knee and leg will likely swell. * As you feel comfortable, you may change from the walker or crutches to a cane and then to independent walking. MEDICATIONS: New Medicine: * You will likely be taking one or more of these medications: 1. Oxycodone - A quick and shorter-acting pain medication. Take one to two tablets every six hours to lessen your pain. 2. Aspirin - Thins your blood to lessen the chance of forming a blood clot. * The most common side effects of pain medicine and iron are nausea and constipation. If nausea or constipation is too much of a problem or if you have any questions about your new medicines or doses, call [facility] at . We will try to help you manage these issues. "VERY IMPORTANT TO READ AND REVIEW" Pain: * The immediate post-operative period after knee replacement surgery is often quite painful. * You are given a prescription for pain medicine. You should take it, as directed, when you need it, especially before physical therapy and before going to bed. Pain that interferes with sleep is very common and can last several months. * You will likely need pain medicine for the first four to six weeks. It will not stop all of the pain. The pain will lessen and as you feel better, you may change to milder pain medicine such as Tylenol. * The most common side effects of pain medicine are nausea and constipation, so don't take more than you need. SPECIAL CARE INSTRUCTIONS: TEDs/Elastic Stockings: * The white elastic stockings help limit swelling and prevent blood clots from forming in your legs. The more you wear them, the more they work. * Wear them for six weeks after knee replacement surgery and four weeks after partial knee replacement. Incision Site Care: * Remove dressing postoperative day 2 and then shower. Keep direct shower pressure off the incision site. * After showering, cover ramon with dry gauze and change daily or more frequently if the dressing is getting saturated with drainage. * Use the AURY stockings to hold dressing in place. DO NOT apply tape on the skin. * May completely stop using bandage if wound is dry and no drainage * [place] are removed between 2 and 3 weeks post-op. If your follow-up appointment is made before 2 weeks, please have your appointment re- scheduled. It is too early to remove the ramon. Prevention of Infection: * Take antibiotics one hour before any dental cleaning, dental work, urological procedure, gastrointestinal procedure or any invasive surgery in order to prevent your new joint from getting infected. * You may get the antibiotics from the doctor performing the procedure or you may call our office at [phone] before and we will call in a prescription to the pharmacy of your choice. Things to Watch For: * Drainage from the incision site that occurs more than one week after your surgery. * Severely increased knee/leg pain or swelling. * Increased redness at the incision site. * Fever above 102 degrees Fahrenheit. * Unusual chest pain or shortness of breath. * Unusual pain or burning with urination. Call [facility] at [phone] with any of the above problems or if you have any questions about your medicines or recovery. FOLLOW UP VISIT: Make an appointment to see your doctor for approximately two weeks after surgery for a progress check and staple removal by calling the office at [phone]. Pending Studies at Discharge: No Stand-Alone Forms: [facility], Smoking Cessation Medications and DC Order Prescriptions: Continued (DME) Wheeled Walker Misc See Rx Instructions .MEDSUPPLY Qty: 1 0RF Rx Instructions: As directed tadalafil [Cialis] 5 mg tablet 5 mg PO QAM Qty: 30 5RF sennosides [Senokot] 8.6 mg tablet 8.6 mg PO BID 14 Days Qty: 28 0RF Rx Instructions: Take two times a day to prevent/treat constipation acetaminophen [Tylenol Extra Strength] 500 mg tablet 1,000 mg PO TID 30 Days Qty: 180 0RF Rx Instructions: Take 3 times per day to lessen pain. tamsulosin [Flomax] 0.4 mg capsule 0.4 mg PO DAILY Qty: 7 0RF Rx Instructions: Begin night BEFORE surgery to prevent urinary retention ondansetron 4 mg tablet,disintegrating 4 mg PO Q8 PRN (Reason: nausea) Qty: 20 1RF Rx Instructions: Take as needed for nausea oxycodone 5 mg tablet 5 - 10 mg PO Q6 PRN (Reason: pain) Qty: 40 0RF Rx Instructions: Take as needed for pain aspirin [Tyra Low Dose Aspirin] 81 mg tablet,delayed release (DR/EC) 81 mg PO BID 45 Days Qty: 90 0RF Rx Instructions: Take to prevent blood clots cefadroxil 500 mg capsule 500 mg PO BID 7 Days Qty: 14 0RF Rx Instructions: Take 1 cap twice a day to prevent infection manganese Tablet 1 tab PO 3XWK Patient Comments: MANGANESE B 12 - DAYS VARY - HS PER Saccharomyces boulardii [Probiotic (S.boulardii)] 250 mg capsule 250 mg PO WK Patient Comments: takes on thursday Rx Instructions: Once a week simvastatin 80 mg tablet 80 mg PO 3XWK Patient Comments: takes at hs Rx Instructions: Three times a week ligaplex 1 capsule 1 cap PO 3XWK Patient Comments: takes in the am Moducare capsule 1 cap PO QAM fibrenza capsule 1 cap PO QAM multivitamin,tx-minerals Capsule 1 cap PO UD Patient Comments: takes 1 every 3 days at night cephalexin 500 mg capsule 500 mg PO TID zinc 25 mg Tablet 25 mg PO UD PRN (Reason: when immune system is down) Patient Comments: Has not taken Magnesium Complex 1 cap PO HS Kyolic 1 cap PO .COMPLEX PRN (Reason: circulation) Rx Instructions: 1 cap orally PRN; One every 3 days AM Premier B.P. Complex 1 tab PO QAM fish oil-dha-epa 1,200-144-216 mg Capsule 1 cap PO UD Patient Comments: takes every 3 days at night vitamin D3-vitamin K2 1,250-200 mcg Capsule 1 cap PO DAILY PRN (Reason: immune system support) amoxicillin 500 mg tablet 2,000 mg PO ONCE PRN (Reason: prior to dental procedures) Rx Instructions: 4 tabs 1 hour prior to procedure pantoprazole 40 mg tablet,delayed release (DR/EC) 40 mg PO QAM Proberry 1 tab PO UD PRN (Reason: immune health) Discontinued aspirin [Adult Low Dose Aspirin] 81 mg tablet,delayed release (DR/EC) 81 mg PO UD Patient Comments: takes every 3 days in the am Rx Instructions: Every 3 Days Admission Data Admit Date/Time: 12/01/24 15:17 Attending Provider: Deandre Heck Admit Provider: Deandre Heck Primary Care Provider: Lul Martinez Other Interventions: Discharge Summary Assessment (RN) Last Done: 12/02/24 08:15
[2024-12-05] MEDS ORDERED: SACCHAROMYCES BOULARDII 250 MG CAP PO SCH (09:00)
== END 2024-12-02 11:25 | disposition home health service (06) ==
LOC: 3E 10:47 → ASU 10:47